=== PATIENT | female | born 1930 ===

== ENCOUNTER 2018-01-27 11:44 | Inpatient (IN) | payer MEDICARE, MEDICAID ==
--- NOTE | 2018-01-27 12:10 | ED PDOC ---
HPI: General Adult Time Seen by Provider: 01/27/18 11:58 Chief Complaint (Nursing): Weakness/Neurological Deficit Chief Complaint (Provider): Weakness and abnormal labs History Per: Patient History/Exam Limitations: no limitations Onset/Duration Of Symptoms: Days (today) Additional Complaint(s): PCP: Dr. Millard Pt. sent from shelter as her bun and cr were elevated. Pt. has known kidney dz. Limited H and P as pt. has dementia and not communicating. Does not follow commands. Also noted at the shelter that she has weakness but unclear how long. Past Medical History Reviewed: Historical Data, Nursing Documentation, Vital Signs Vital Signs: Last Vital Signs Temp 97.0 F L 01/27/18 11:46 Pulse 56 L 01/27/18 11:46 Resp 16 01/27/18 11:46 BP 131/71 01/27/18 11:46 Pulse Ox - Medical History PMH: Diabetes, HTN, Hypercholesterolemia, Chronic Kidney Disease - Family History Family History: States: Unknown Family Hx - Living Arrangements Living Arrangements: [facility] - Home Medications Home Medications: Ambulatory Orders Medication Instructions Recorded Acetaminophen [Tylenol 325mg tab] 650 mg PO Q4 PRN 01/27/18 Acetaminophen [Tylenol 325mg tab] 650 mg PO Q4 PRN 01/27/18 Allopurinol [Zyloprim] 100 mg PO DAILY 01/27/18 Atorvastatin [Lipitor] 40 mg PO HS 01/27/18 Bisacodyl [Dulcolax] 10 mg [place] DAILY PRN 01/27/18 Divalproex [Depakote Sprinkles] 125 mg PO QPM 01/27/18 Ibandronate Sodium [Boniva] 150 mg PO Q30D 01/27/18 Magnesium Hydroxide [Milk Of 30 ml PO HS PRN 01/27/18 Magnesia] Memantine [Namenda] 10 mg PO BID 01/27/18 SITagliptin [Januvia] 50 mg PO DAILY 01/27/18 Valsartan [Diovan] 320 mg PO DAILY 01/27/18 amLODIPine [Norvasc] 10 mg PO DAILY 01/27/18 - Allergies Allergies/Adverse Reactions: Allergies Allergy/AdvReac Type Severity Reaction Status Date / Time No Known Allergies Allergy Verified 01/27/18 11:46 Review of Systems Review Of Systems: ROS cannot be obtained secondary to pt's inabilty to answer questions. Physical Exam - Reviewed Nursing Documentation Reviewed: Yes Vital Signs Reviewed: Yes - Physical Exam Appears: Positive for: Non-toxic, No Acute Distress Head Exam: Positive for: ATRAUMATIC, NORMAL INSPECTION, NORMOCEPHALIC Skin: Positive for: Normal Color, Warm, DRY Eye Exam: Positive for: Normal appearance, PERRL ENT: Positive for: Normal ENT Inspection Neck: Positive for: Normal, Painless ROM, Supple Cardiovascular/Chest: Positive for: Regular Rate, Rhythm. Negative for: Edema Respiratory: Positive for: Normal Breath Sounds. Negative for: Decreased Breath Sounds, Accessory Muscle Use Gastrointestinal/Abdominal: Positive for: Normal Exam, Soft. Negative for: Tenderness Back: Positive for: Normal Inspection. Negative for: L CVA Tenderness, R CVA Tenderness Extremity: Negative for: Tenderness, Pedal Edema Neurologic/Psych: Positive for: Alert, Other (pt. not following commands; limited neuro exam; moving all extremities on her own will; speaks words, but not making sensible comments.). Negative for: Oriented - Laboratory Results Result Diagrams: 01/27/18 13:06 01/27/18 13:45 Interpretation Of Abn Labs: 108/3.3 bun/cr; 16.3 wbc Urine dip results: Negative for: Leukocyte Esterase - ECG ECG: Positive for: Interpreted By Me, Viewed By Me ECG Rhythm: Positive for: Normal QRS, Normal ST Segment, Sinus Rhythm - Progress ED Course And Treament: 1500: Pt. has antibiotics rx at shelter for "high wbc". Unclear level wbc at that time and source. 1 L of fluid given for dehydration and renal function abnormalities. Will need admit for eval. No source of infection at this time; will not give antibiotics; does not meet sepsis criteria. Spoke with Dr. Ponce. Will admit. Agrees with plan. Disposition - Clinical Impression Clinical Impression: Acute renal insufficiency, Dehydration, Leukocytosis - Patient ED Disposition Is Patient to be Admitted: No Counseled Patient/Family Regarding: Studies Performed, Diagnosis - Disposition Disposition Time: 14:29 Condition: FAIR - Pt Status Changed To: Hospital Disposition Of: Observation - POA Present On Arrival: None
[2018-01-27] MEDS: Sodium Chloride 0.9% 1,000 ML IV STA ×2 (13:16→18:21)
[2018-01-27 13:22] LABS: SQUAMOUS EPITHIAL < 1 /hpf (0-5); URINE AMORPHOUS SEDIMENT RARE /ul (<OCC); URINE BACTERIA RARE (<OCC); URINE BILIRUBIN NEGATIVE (NEGATIVE); URINE BLOOD NEGATIVE (NEGATIVE); URINE CLARITY CLOUDY (Clear); URINE COLOR YELLOW (YELLOW); URINE GLUCOSE (UA) NEG (Normal); URINE HYALINE CAST 0-2 /hpf (0-2); URINE LEUKOCYTE ESTERASE NEG Leu/uL (Negative); URINE PROTEIN 30 mg/dL (NEGATIVE); URINE UROBILINOGEN 0.2-1.0 mg/dL (0.2-1.0)
[2018-01-27 13:29] LABS: BASO % 0.1 % (0.0-2.0)
[2018-01-27 13:30] LABS: EOS % 0.2 % (0.0-4.0); HEMOGLOBIN 12.7 g/dL (12.0-16.0); LYMPH # 0.7 K/uL (1.0-4.3); LYMPH % 4.1 % (20.0-40.0); MEAN CELL VOLUME 80.2 fl (81.0-99.0); MEAN CORPUSCULAR HGB CONC 33.7 g/dL (33.0-37.0); MEAN PLATELET VOLUME 9.4 fl (7.2-11.7); MONO % 5.9 % (0.0-10.0); NEUT # 14.6 K/uL (1.8-7.0); NEUT % 89.7 % (50.0-75.0); PLATELET COUNT 398 K/uL (130-400); RBC 4.69 Mil/uL (3.80-5.20); RED CELL DISTRIBUTION WIDTH 18.9 % (11.5-14.5); WHITE BLOOD COUNT 16.3 K/uL (4.8-10.8)
--- NOTE | 2018-01-27 14:04 | CT ---
Date of service: 01/27/2018 PROCEDURE: CT HEAD WITHOUT CONTRAST. HISTORY: headache COMPARISON: None available. TECHNIQUE: Axial computed tomography images were obtained through the head/brain without intravenous contrast. Radiation dose: Total exam DLP = 814.59 mGy-cm. This CT exam was performed using one or more of the following dose reduction techniques: Automated exposure control, adjustment of the mA and/or kV according to patient size, and/or use of iterative reconstruction technique. FINDINGS: HEMORRHAGE: No intracranial hemorrhage. BRAIN: There a few lucencies in the right basal ganglia and external capsule suggestive of chronic lacunar infarcts. Otherwise, there is mild expansion of the ventriculosulcal and cisternal spaces pattern with mild diffuse cerebral atrophy. Ventricular and extra-axial expansion is proportional. Further, periventricular and centrum semiovale white matter lucency is appreciated in the cerebrum compatible with chronic microangiopathy. No mass-effect is identified and there is no definite cortical edema. Posterior fossa contents appear unremarkable including the brainstem. VENTRICLES: Unremarkable. No hydrocephalus. CALVARIUM: No fracture apparent. Mild atherosclerotic changes seen at the bilateral cavernous internal carotid artery segments. PARANASAL SINUSES: Unremarkable as visualized. No significant inflammatory changes. MASTOID AIR CELLS: Unremarkable as visualized. No inflammatory changes. OTHER FINDINGS: None. IMPRESSION: Age-appropriate age related neuro degenerative findings are appreciated as well as a few chronic lacunes at the right basal ganglia and external capsule. No definitive acute intracranial findings. CT or MRI are available for follow-up clinically warranted.
[2018-01-27 14:33] LABS: ALBUMIN 3.2 g/dL (3.5-5.0); CALCIUM 9.7 mg/dL (8.4-10.2)
[2018-01-27 14:34] LABS: ALB/GLOB RATIO 0.8 (1.0-2.1)
[2018-01-27 14:48] LABS: TROPONIN I 0.022 ng/mL (0.00-0.120)
[2018-01-27 14:54] LABS: BANDS 8 % (0-2); LYMPHOCYTE 9 % (20-50); MONOCYTE 4 % (0-10); NEUTROPHIL 79 % (42-75); TOTAL CELLS COUNTED 100
[2018-01-27 14:55] LABS: ANISOCYTOSIS SLIGHT; LARGE PLATELETS PRESENT; PLATELET ESTIMATE NORMAL (NORMAL); TEARDROP CELLS SLIGHT; TOXIC GRANULATION PRESENT
[2018-01-27 15:50] LABS: VENOUS BLOOD GAS BASE EXCESS -2.4 mmol/L (0.0-2.0); VENOUS BLOOD GAS PCO2 42 mmHg (40-60); VENOUS BLOOD GAS PO2 28 mm/Hg (30-55); VENOUS BLOOD PH 7.35 (7.32-7.43)
--- NOTE | 2018-01-27 15:54 | RAD ---
Date of service: 01/27/2018 HISTORY: dyspnea COMPARISON: No prior. FINDINGS: LUNGS: No active pulmonary disease. PLEURA: No significant pleural effusion identified, no pneumothorax apparent. CARDIOVASCULAR: No gross cardiac enlargement. Frontal technique limits evaluation the cardiac size nevertheless. No pulmonary vascular congestion evident. OSSEOUS STRUCTURES: No significant abnormalities. VISUALIZED UPPER ABDOMEN: Normal. OTHER FINDINGS: Prominent right paratracheal soft tissue may reflect substernal thyroid gland or great vessel ectasis. Trachea is not significantly deviated. IMPRESSION: No definite acute pulmonary disease. No gross cardiomegaly or pulmonary vascular congestion.
--- NOTE | 2018-01-27 16:32 | CP.PCM.HP ---
History of Present Illness - History of Present Illness History of Present Illness: 87 yo female with history of DM2, HTN, HLD, Dementia and CKD brought in from [facility]-way because of worsening renal function and generalized weakness. Patient was brought to [facility] in January 02 because she was not able to do her ADLs but was still able to ambulate with her cane. Family noted that she had deteriorated since then and was unable to ambulate even with a walker. She was given Cipro for a week the first few days but didn't say for what. Her feet and ankle was swollen a week ago but since then have subsided leaving blackish area on the right lateral malleolus. She also started having diarrhea a week ago. Patient denied any pain but seems to wince when right foot and ankle was held. Present on Admission - Present on Admission Any Indicators Present on Admission: No History of DVT/PE: No History of Uncontrolled Diabetes: No Urinary Catheter: No Decubitus Ulcer Present: No Review of Systems - Review of Systems Systems not reviewed;Unavailable: Dementia Past Patient History - Past Social History Smoking Status: Never Smoked - CARDIAC Hx Hypercholesterolemia: Yes Hx Hypertension: Yes - NEUROLOGICAL Hx Dementia: Yes - RENAL Hx Chronic Kidney Disease: Yes - MUSCULOSKELETAL/RHEUMATOLOGICAL Hx Osteoarthritis: Yes - PSYCHIATRIC Hx Substance Use: No - ANESTHESIA Hx Anesthesia: No Meds Allergies/Adverse Reactions: Allergies Allergy/AdvReac Type Severity Reaction Status Date / Time No Known Allergies Allergy Verified 01/27/18 11:46 Physical Exam - Constitutional Appears: No Acute Distress, Confused - Head Exam Head Exam: ATRAUMATIC - Eye Exam Eye Exam: absent: Scleral icterus - ENT Exam ENT Exam: Mucous Membranes Moist - Neck Exam Neck exam: Negative for: Meningismus - Respiratory Exam Respiratory Exam: absent: Rales, Rhonchi, Wheezes, Respiratory Distress - Cardiovascular Exam Cardiovascular Exam: REGULAR RHYTHM, +S1, +S2 - GI/Abdominal Exam GI & Abdominal Exam: Soft. absent: Tenderness - Rectal Exam Rectal Exam: Deferred - Extremities Exam Extremities exam: Positive for: pedal edema. Negative for: normal inspection ( multiple petechiae on both feet with black?? eschar on right lateral malleolus) - Back Exam Back exam: absent: tenderness - Neurological Exam Neurological exam: Alert, Oriented x3 - Psychiatric Exam Psychiatric exam: Flat Affect - Skin Skin Exam: Dry, Intact, Petechiae (on both feet ) Results - Vital Signs Recent Vital Signs: Last Vital Signs Temp 97.0 F L 01/27/18 11:46 Pulse 56 L 01/27/18 11:46 Resp 16 01/27/18 11:46 BP 131/71 01/27/18 11:46 Pulse Ox - Labs Result Diagrams: 01/27/18 13:06 01/27/18 13:45 Labs: Laboratory Results - last 24 hr 01/27/18 01/27/18 01/27/18 13:06 13:06 13:45 WBC 16.3 H RBC 4.69 Hgb 12.7 Hct 37.6 MCV 80.2 L MCH 27.0 MCHC 33.7 RDW 18.9 H Plt Count 398 MPV 9.4 Neut % (Auto) 89.7 H Lymph % (Auto) 4.1 L [place] % (Auto) 5.9 Eos % (Auto) 0.2 Baso % (Auto) 0.1 Neut # (Auto) 14.6 H Lymph # (Auto) 0.7 L [place] # (Auto) 1.0 H Eos # (Auto) 0.0 Baso # (Auto) 0.0 Neutrophils % (Manual) 79 H Band Neutrophils % 8 H Lymphocytes % (Manual) 9 L Monocytes % (Manual) 4 Toxic Granulation Present Platelet Estimate Normal Large Platelets Present Anisocytosis (manual) Slight Tear Drop Cells Slight pO2 ABG Carboxyhemoglobin POC ABG HHb (Measured) ABG Methemoglobin VBG pH VBG pCO2 VBG HCO3 VBG O2 Sat (Calc) VBG Base Excess VBG Hgb O2 Saturation Hemoglobin Sodium 143 Potassium 4.5 Chloride 108 H Carbon Dioxide 20 L Anion Gap 20 BUN 108 H* Creatinine 3.3 H Est GFR ( Amer) 16 Est GFR (Non-Af Amer) 13 Random Glucose 126 H Calcium 9.7 Phosphorus 5.8 H Magnesium 2.8 H Total Bilirubin 1.0 AST 28 ALT 25 Alkaline Phosphatase 96 Troponin I 0.0220 Total Protein 7.2 Albumin 3.2 L Globulin 4.0 H Albumin/Globulin Ratio 0.8 L Urine Color Yellow Urine Clarity Cloudy Urine pH 5.0 Ur Specific [place] 1.015 Urine Protein 30 Urine Glucose (UA) Neg Urine Ketones Negative Urine Blood Negative Urine Nitrate Negative Urine Bilirubin Negative Urine Urobilinogen 0.2-1.0 Ur Leukocyte Esterase Neg Urine RBC (Auto) < 1 Urine Microscopic WBC < 1 Ur Squamous Epith Cells < 1 Amorphous Sediment Rare H Urine Bacteria Rare Hyaline Casts 0-2 01/27/18 15:21 WBC RBC Hgb Hct MCV MCH MCHC RDW Plt Count MPV Neut % (Auto) Lymph % (Auto) [place] % (Auto) Eos % (Auto) Baso % (Auto) Neut # (Auto) Lymph # (Auto) [place] # (Auto) Eos # (Auto) Baso # (Auto) Neutrophils % (Manual) Band Neutrophils % Lymphocytes % (Manual) Monocytes % (Manual) Toxic Granulation Platelet Estimate Large Platelets Anisocytosis (manual) Tear Drop Cells pO2 28 L ABG Carboxyhemoglobin 1.8 H POC ABG HHb (Measured) 47.9 H ABG Methemoglobin 3.9 H VBG pH 7.35 VBG pCO2 42 VBG HCO3 21.8 VBG O2 Sat (Calc) 49.2 VBG Base Excess -2.4 L VBG Hgb O2 Saturation 46.4 L Hemoglobin 12.5 Sodium Potassium Chloride Carbon Dioxide Anion Gap BUN Creatinine Est GFR ( Amer) Est GFR (Non-Af Amer) Random Glucose Calcium Phosphorus Magnesium Total Bilirubin AST ALT Alkaline Phosphatase Troponin I Total Protein Albumin Globulin Albumin/Globulin Ratio Urine Color Urine Clarity Urine pH Ur Specific [place] Urine Protein Urine Glucose (UA) Urine Ketones Urine Blood Urine Nitrate Urine Bilirubin Urine Urobilinogen Ur Leukocyte Esterase Urine RBC (Auto) Urine Microscopic WBC Ur Squamous Epith Cells Amorphous Sediment Urine Bacteria Hyaline Casts Assessment & Plan - Assessment and Plan (Free Text) Assessment: 87 yo female with history of DM2, HTN, HLD, Dementia and CKD brought in from half-way because of worsening renal function and generalized weakness. Patient was brought to [facility] in January 02 because she was not able to do her ADLs but was still able to ambulate with her cane. Family noted that she had deteriorated since then and was unable to ambulate even with a walker. She was given Cipro for a week the first few days but didn't say for what. Her feet and ankle was swollen a week ago but since then have subsided leaving blackish area on the right lateral malleolus. She also started having diarrhea a week ago. Patient denied any pain but seems to wince when right foot and ankle was held. 1. Acute on CKD worsening renal function probably secondary to infection renal consult with Dr Herman IV hydration with NSS 100cc/hr repeat BMP in am 2. Dementia follow up CT scan of head unable to accomplish ADLs after admission to half-way maybe secondary to undiscovered CVA PT evaluation and management 3. DM2 accucheck ACHS with Lispro coverage Januvia 50mg PO daily HgA1C, BMP in am 4. HTN BP stable continue Amlodipine hold Diovan 5. Swelling of both Feet/Ankle podiatry consult venous doppler of both legs 6. Diarrhea R/O C dif colitis patient previously on Cipro a week ago? contact isolation 7. DVT prophylaxis Heparin 5000 units SC q 12hrs
[2018-01-27] MEDS ORDERED: Sodium Chloride 0.9% 1,000 ML IV SCH (17:00)
--- NOTE | 2018-01-27 18:19 | CP.PCM.CON ---
History of Present Illness - History of Present Illness History of Present Illness: Podiatry consult notes for attending Dr. Peralta 87 y/o F patient with PMH of DM2, HTN, HLD, Dementia and CKD seen and evaluated at the ED for B/L skin discoloration and ulcers in both feet. patient is not communicating and history was taken from her daughter. Daughter states that her mother went to a [facility] by January 04. She states that 1 week ago her mother started to develop b/l LE edema. She states that her mother also had multiple spots of red and black discoloration in both her feet and ankle. She states that they put her mother's feet in offloading boats. She states that yesterday her mother's edema got better but the discoloration got worse. Patient 's daughter denied that her mother got any recent F/N/V/C or SOB. She denies any other pedal complaint. PMH: DM2, HTN, HLD, Dementia and CKD PSH: Hysterectomy. Allergies: NKDA Review of Systems - Review of Systems Review of Systems: As per HPI Past Patient History - Past Social History Smoking Status: Never Smoked - CARDIAC Hx Hypercholesterolemia: Yes Hx Hypertension: Yes - NEUROLOGICAL Hx Dementia: Yes - RENAL Hx Chronic Kidney Disease: Yes - MUSCULOSKELETAL/RHEUMATOLOGICAL Hx Osteoarthritis: Yes - PSYCHIATRIC Hx Substance Use: No - ANESTHESIA Hx Anesthesia: No Meds Allergies/Adverse Reactions: Allergies Allergy/AdvReac Type Severity Reaction Status Date / Time No Known Allergies Allergy Verified 01/27/18 11:46 - Medications Medications: Current Medications Acetaminophen (Tylenol 325mg Tab) 650 mg PO Q4 PRN PRN Reason: TEMP OVER 101 Acetaminophen (Tylenol 325mg Tab) 650 mg PO Q4 PRN PRN Reason: Pain, Mild (1-3) Allopurinol (Zyloprim) 100 mg PO DAILY TARA Amlodipine Besylate (Norvasc) 10 mg PO DAILY TARA Atorvastatin Calcium (Lipitor) 40 mg PO HS TARA Bisacodyl (Dulcolax) 10 mg [place] DAILY PRN PRN Reason: NO BOWEL MOVEMENT X 3 DAYS Heparin Sodium (Porcine) (Heparin) 5,000 units SC Q12 TARA PRN Reason: Protocol Sodium Chloride (Sodium Chloride 0.9%) 1,000 mls @ 100 mls/hr IV .Q10H TARA Memantine (Namenda) 10 mg PO BID TARA Pantoprazole Sodium (Protonix Ec Tab) 40 mg PO DAILY TARA Sitagliptin Phosphate (Januvia) 50 mg PO DAILY TARA Physical Exam - Constitutional Appears: Non-toxic - Head Exam Head Exam: ATRAUMATIC, NORMOCEPHALIC - Extremities Exam Additional comments: LE focused exam: Vasc: DP/PT 2/4 b/l. Cap refill < 3 sec in all digits. temp gradient warm to cool. No edema b/l. Neuro: Couldn't be assessed as the patient is not comparable Derm: Scattered patches of dark discolored skin at the ankle b/l the smallest measures 3 X 2 cm and the largest one measures 7 X 5 cm. surrounded by an area of erythema but no open lesions, No malodor or drainage. Ortho: Pain on palpating the discolored areas. Muscle power couldn't be assessed as the patient is not cooperating. Results - Vital Signs Recent Vital Signs: Last Vital Signs Temp 98.8 F 01/27/18 16:26 Pulse 85 01/27/18 16:26 Resp 19 01/27/18 16:26 BP 128/94 H 01/27/18 16:26 Pulse Ox 98 01/27/18 16:26 - Labs Result Diagrams: 01/27/18 13:06 01/27/18 13:45 Labs: Laboratory Results - last 24 hr 01/27/18 01/27/18 01/27/18 13:06 13:06 13:45 WBC 16.3 H RBC 4.69 Hgb 12.7 Hct 37.6 MCV 80.2 L MCH 27.0 MCHC 33.7 RDW 18.9 H Plt Count 398 MPV 9.4 Neut % (Auto) 89.7 H Lymph % (Auto) 4.1 L [place] % (Auto) 5.9 Eos % (Auto) 0.2 Baso % (Auto) 0.1 Neut # (Auto) 14.6 H Lymph # (Auto) 0.7 L [place] # (Auto) 1.0 H Eos # (Auto) 0.0 Baso # (Auto) 0.0 Neutrophils % (Manual) 79 H Band Neutrophils % 8 H Lymphocytes % (Manual) 9 L Monocytes % (Manual) 4 Toxic Granulation Present Platelet Estimate Normal Large Platelets Present Anisocytosis (manual) Slight Tear Drop Cells Slight pO2 ABG Carboxyhemoglobin POC ABG HHb (Measured) ABG Methemoglobin VBG pH VBG pCO2 VBG HCO3 VBG O2 Sat (Calc) VBG Base Excess VBG Hgb O2 Saturation Hemoglobin Sodium 143 Potassium 4.5 Chloride 108 H Carbon Dioxide 20 L Anion Gap 20 BUN 108 H* Creatinine 3.3 H Est GFR ( Amer) 16 Est GFR (Non-Af Amer) 13 Random Glucose 126 H Calcium 9.7 Phosphorus 5.8 H Magnesium 2.8 H Total Bilirubin 1.0 AST 28 ALT 25 Alkaline Phosphatase 96 Troponin I 0.0220 Total Protein 7.2 Albumin 3.2 L Globulin 4.0 H Albumin/Globulin Ratio 0.8 L Urine Color Yellow Urine Clarity Cloudy Urine pH 5.[address] [place] 1.015 Urine Protein 30 Urine Glucose (UA) Neg Urine Ketones Negative Urine Blood Negative Urine Nitrate Negative Urine Bilirubin Negative Urine Urobilinogen 0.2-1.0 Ur Leukocyte Esterase Neg Urine RBC (Auto) < 1 Urine Microscopic WBC < 1 Ur Squamous Epith Cells < 1 Amorphous Sediment Rare H Urine Bacteria Rare Hyaline Casts 0-2 01/27/18 15:21 WBC RBC Hgb Hct MCV MCH MCHC RDW Plt Count MPV Neut % (Auto) Lymph % (Auto) [place] % (Auto) Eos % (Auto) Baso % (Auto) Neut # (Auto) Lymph # (Auto) [place] # (Auto) Eos # (Auto) Baso # (Auto) Neutrophils % (Manual) Band Neutrophils % Lymphocytes % (Manual) Monocytes % (Manual) Toxic Granulation Platelet Estimate Large Platelets Anisocytosis (manual) Tear Drop Cells pO2 28 L ABG Carboxyhemoglobin 1.8 H POC ABG HHb (Measured) 47.9 H ABG Methemoglobin 3.9 H VBG pH 7.35 VBG pCO2 42 VBG HCO3 21.8 VBG O2 Sat (Calc) 49.2 VBG Base Excess -2.4 L VBG Hgb O2 Saturation 46.4 L Hemoglobin 12.5 Sodium Potassium Chloride Carbon Dioxide Anion Gap BUN Creatinine Est GFR ( Amer) Est GFR (Non-Af Amer) Random Glucose Calcium Phosphorus Magnesium Total Bilirubin AST ALT Alkaline Phosphatase Troponin I Total Protein Albumin Globulin Albumin/Globulin Ratio Urine Color Urine Clarity Urine pH Ur Specific [place] Urine Protein Urine Glucose (UA) Urine Ketones Urine Blood Urine Nitrate Urine Bilirubin Urine Urobilinogen Ur Leukocyte Esterase Urine RBC (Auto) Urine Microscopic WBC Ur Squamous Epith Cells Amorphous Sediment Urine Bacteria Hyaline Casts Assessment & Plan - Assessment and Plan (Free Text) Assessment: 87 y/o F patient seen and evaluated in the ED for pain and discoloration of her feet and ankle b/l Plan: Patient seen and evaluated in the ED. Plan discussed in details with attending Dr. Peralta. Chart, labs and vitals reviewed; afeebrile, WBCs 16.3 Venous duplex done and reviewed; No evidence of DVT Discussed with the patient's daughter the duplex result. Patient will got admitted for her ESRD. Patient daughter expressed verbal understanding Podiatry will follow up the patient in house. - Date & Time Date: 01/27/18 Time: 19:02
--- NOTE | 2018-01-27 19:03 | US ---
Date of service: 01/27/2018 PROCEDURE: Bilateral lower extremity venous duplex Doppler. HISTORY: r/o DVT COMPARISON: None available. TECHNIQUE: Bilateral common femoral, superficial femoral, popliteal and posterior tibial veins were evaluated. Flow was assessed with color Doppler, compressibility, assessment of phasic flow and augmentation response. FINDINGS: COMMON FEMORAL VEIN: Right CFV: Unremarkable. Left CFV: Unremarkable. SUPERFICIAL FEMORAL VEIN: Right SFV: Unremarkable. Left SFV: Unremarkable. POPLITEAL VEIN: Right Popliteal: Unremarkable. Left Popliteal: Unremarkable. POSTERIOR TIBIAL VEIN: Right PTV: Unremarkable. Left PTV: Unremarkable. OTHER FINDINGS: None. IMPRESSION: No evidence of deep venous thrombosis.
--- NOTE | 2018-01-27 21:03 | CARD ---
APPROVED REPORT Date of service: 01/27/2018 EKG Measurement Heart [id number] <Conclusion> Normal sinus rhythm Normal ECG
[2018-01-28 07:28] LABS: BASO # 0.3 K/uL (0.0-0.2); BASO % 1.7 % (0.0-2.0); EOS % 0.2 % (0.0-4.0); HEMOGLOBIN 10.9 g/dL (12.0-16.0); LYMPH # 0.4 K/uL (1.0-4.3); LYMPH % 2.2 % (20.0-40.0); MEAN CELL VOLUME 80.2 fl (81.0-99.0); MEAN CORPUSCULAR HGB CONC 32.4 g/dL (33.0-37.0); MONO % 5.1 % (0.0-10.0); NEUT # 17.6 K/uL (1.8-7.0); NEUT % 90.8 % (50.0-75.0); PLATELET COUNT 311 K/uL (130-400); RBC 4.19 Mil/uL (3.80-5.20); WHITE BLOOD COUNT 19.3 K/uL (4.8-10.8)
[2018-01-28 07:59] LABS: CALCIUM 9.4 mg/dL (8.4-10.2)
--- NOTE | 2018-01-28 08:38 | CP.PCM.PN ---
Subjective - Date & Time of Evaluation Date of Evaluation: 01/28/18 Time of Evaluation: 08:36 - Subjective Subjective: Podiatry progress note for attending Dr. De León, 87 y/o female seen and evaluated at bedside. Patient family not present at bedside for B/L skin discoloration and ecchymosis. Patient unable to communicate due to altered mental status. Patient awake, and in no acute distress. As per nursing, no overnight events noted and patient afebrile. Objective - Vital Signs/Intake and Output Vital Signs (last 24 hours): Temp Pulse Resp BP Pulse Ox 97.9 F 84 18 114/59 L 95 01/28/18 08:09 01/28/18 08:09 01/28/18 08:09 01/28/18 08:09 01/28/18 08:09 - Medications Medications: Current Medications Acetaminophen (Tylenol 325mg Tab) 650 mg PO Q4 PRN PRN Reason: TEMP OVER 101 Acetaminophen (Tylenol 325mg Tab) 650 mg PO Q4 PRN PRN Reason: Pain, Mild (1-3) Allopurinol (Zyloprim) 100 mg PO DAILY [facility] Amlodipine Besylate (Norvasc) 10 mg PO DAILY [facility] Atorvastatin Calcium (Lipitor) 40 mg PO HS [facility] Last Admin: 01/27/18 21:48 Dose: 40 mg Bisacodyl (Dulcolax) 10 mg [place] DAILY PRN PRN Reason: NO BOWEL MOVEMENT X 3 DAYS Heparin Sodium (Porcine) (Heparin) 5,000 units SC Q12 TARA PRN Reason: Protocol Last Admin: 01/27/18 21:48 Dose: 5,000 units Sodium Chloride (Sodium Chloride 0.9%) 1,000 mls @ 100 mls/hr IV .Q10H [facility] Last Admin: 01/27/18 18:21 Dose: 100 mls/hr Memantine (Namenda) 10 mg PO BID TARA Pantoprazole Sodium (Protonix Ec Tab) 40 mg PO DAILY TARA Sitagliptin Phosphate (Januvia) 50 mg PO DAILY [facility] - Labs Labs: 01/28/18 06:00 01/28/18 06:00 - Constitutional Appears: Well, Non-toxic, No Acute Distress - Head Exam Head Exam: ATRAUMATIC, NORMOCEPHALIC - Extremities Exam Additional comments: Bilateral Lower Extremity Exam- Vasc: DP and PT 2/4 bilaterally, Cap refill < 3 sec in all digits, temp gradient warm to cool, No edema bilaterally Neuro: count not assess due to patient altered mental status Derm: Scattered patches of dark discolored skin at the ankle bilaterally, surrounded by an areas of erythema, no open lesions, no malodor or drainage Ortho: Pain on palpation to the discolored areas, could not assess patient MSK due to altered mental status - Neurological Exam Neurological Exam: Awake - Psychiatric Exam Psychiatric exam: Normal Affect, Normal Mood Assessment and Plan - Assessment and Plan (Free Text) Assessment: 87 y/o female patient seen and evaluated at bedside for pain and discoloration to feet and ankle bilaterally Plan: Patient seen and evaluated at bedside for attending Dr. De León Plan discusssed with attending Dr. De León Chart, labs and vitals reviewed- Afebrile, WBC (01/28) 19.3 , BUN (01/28) 98, Cr ( 01/28) 2.7 Lower Extremity US B/L (01/27): no evidence of DVT No dressing applied to feet at this time No podiatric intervention at this time Podiatry will continue to follow patient while in-house
--- NOTE | 2018-01-28 08:58 | US ---
Date of service: 01/27/2018 PROCEDURE: Duplex ultrasound of the bilateral lower extremity arteries. HISTORY: petechiae COMPARISON: None available. TECHNIQUE: Grayscale and duplex Doppler evaluation of the bilateral common femoral, superficial femoral, popliteal, posterior tibial and dorsalis pedis arteries was performed. FINDINGS: RIGHT LOWER EXTREMITY: RIGHT COMMON FEMORAL ARTERY: Widely patent. Maximal flow velocity of 58.0 cm/s. RIGHT SUPERFICIAL FEMORAL ARTERY: * Proximal: Widely patent. Maximal flow velocity of 74.3 cm/s. * Mid: Widely patent. Maximal flow velocity of 42.6 cm/s. * Distal: Widely patent. Maximal flow velocity of 54.2 cm/s. RIGHT POPLITEAL ARTERY: Widely patent. Maximal flow velocity of 67.0 cm/s. RIGHT ANTERIOR TIBIAL ARTERY: Widely patent. Maximal flow velocity of 47.7 cm/s. RIGHT POSTERIOR TIBIAL ARTERY: Widely patent. Maximal flow velocity of 59.3 cm/s. RIGHT DORSALIS PEDIS ARTERY: Widely patent. Maximal flow velocity of 36.0 cm/s. LEFT LOWER EXTREMITY: LEFT COMMON FEMORAL ARTERY: Widely patent. Maximal flow velocity of 118.9 cm/s. LEFT SUPERFICIAL FEMORAL ARTERY: * Proximal: Widely patent. Maximal flow velocity of 64.5 cm/s. * Mid: Widely patent. Maximal flow velocity of 52.0 cm/s. * Distal: Widely patent. Maximal flow velocity of 52.0 cm/s. LEFT POPLITEAL ARTERY: Widely patent. Maximal flow velocity of 61.4 cm/s. LEFT ANTERIOR TIBIAL ARTERY: Widely patent. Maximal flow velocity of 37.2 cm/s. LEFT POSTERIOR TIBIAL ARTERY: Widely patent. Maximal flow velocity of 49.5 cm/s. LEFT DORSALIS PEDIS ARTERY: Widely patent. Maximal flow velocity of 36.2 cm/s. OTHER FINDINGS: None. IMPRESSION: Normal Duplex Doppler of the bilateral lower extremity arteries.
[2018-01-28 09:50] LABS: BANDS 13 % (0-2); LYMPHOCYTE 3 % (20-50); MONOCYTE 4 % (0-10); NEUTROPHIL 80 % (42-75); PLATELET ESTIMATE NORMAL (NORMAL); TOTAL CELLS COUNTED 100
[2018-01-28 09:51] LABS: ANISOCYTOSIS SLIGHT; POIKILOCYTOSIS SLIGHT; TEARDROP CELLS SLIGHT
[2018-01-28 09:52] LABS: BURR CELLS SLIGHT; LARGE PLATELETS PRESENT
[2018-01-28] MEDS: Pantoprazole 40 mg EC Tab PO SCH (11:01)
[2018-01-28] MEDS: Sodium Chloride 0.45% 1,000 ML IV SCH ×2 (11:04→21:38)
[2018-01-28] MEDS ORDERED: Sodium Chloride 0.9% 1,000 ML IV SCH (12:15)
--- NOTE | 2018-01-28 15:36 | CP.PCM.PN ---
Subjective - Date & Time of Evaluation Date of Evaluation: 01/28/18 Time of Evaluation: 11:30 - Subjective Subjective: Patient seen and examined. Patient remained confused, not in any form of distress. Objective - Vital Signs/Intake and Output Vital Signs (last 24 hours): Temp Pulse Resp BP Pulse Ox 98.4 F 81 18 120/61 97 01/28/18 12:17 01/28/18 12:17 01/28/18 12:17 01/28/18 12:17 01/28/18 12:17 - Medications Medications: Current Medications Acetaminophen (Tylenol 325mg Tab) 650 mg PO Q4 PRN PRN Reason: TEMP OVER 101 Acetaminophen (Tylenol 325mg Tab) 650 mg PO Q4 PRN PRN Reason: Pain, Mild (1-3) Allopurinol (Zyloprim) 100 mg PO DAILY [facility] Last Admin: 01/28/18 11:01 Dose: 100 mg Atorvastatin Calcium (Lipitor) 40 mg PO HS [facility] Last Admin: 01/27/18 21:48 Dose: 40 mg Bisacodyl (Dulcolax) 10 mg [place] DAILY PRN PRN Reason: NO BOWEL MOVEMENT X 3 DAYS Heparin Sodium (Porcine) (Heparin) 5,000 units SC Q12 [facility] PRN Reason: Protocol Last Admin: 01/28/18 11:00 Dose: 5,000 units Sodium Chloride (Sodium Chloride 0.45%) 1,000 mls @ 100 mls/hr IV .Q10H [facility] Stop: 01/29/18 10:02 Last Admin: 01/28/18 11:04 Dose: 100 mls/hr Piperacillin Sod/Tazobactam (Sod 2.25 gm/ Sodium Chloride) 100 mls @ 100 mls/ hr IVPB Q6 [facility] PRN Reason: Protocol Sodium Chloride (Sodium Chloride 0.9%) 1,000 mls @ 200 mls/hr IV .Q5H [facility] Stop: 01/29/18 12:08 Last Admin: 01/28/18 12:54 Dose: 200 mls/hr Memantine (Namenda) 10 mg PO BID [facility] Last Admin: 01/28/18 11:01 Dose: 10 mg Metronidazole (Flagyl) 500 mg PO Q8 [facility] PRN Reason: Protocol Pantoprazole Sodium (Protonix Ec Tab) 40 mg PO DAILY [facility] Last Admin: 01/28/18 11:01 Dose: 40 mg Sitagliptin Phosphate (Januvia) 50 mg PO DAILY [facility] Last Admin: 01/28/18 11:00 Dose: 50 mg - Labs Labs: 01/28/18 06:00 01/28/18 06:00 - Constitutional Appears: No Acute Distress - Head Exam Head Exam: ATRAUMATIC - Eye Exam Eye Exam: absent: Scleral icterus - ENT Exam ENT Exam: Mucous Membranes Moist - Neck Exam Neck Exam: absent: Meningismus - Respiratory Exam Respiratory Exam: absent: Rales, Rhonchi, Wheezes, Respiratory Distress - Cardiovascular Exam Cardiovascular Exam: REGULAR RHYTHM, +S1, +S2 - GI/Abdominal Exam GI & Abdominal Exam: Soft. absent: Tenderness - Rectal Exam Rectal Exam: Deferred - Extremities Exam Extremities Exam: absent: Normal Inspection (foot and ankle with mini red dark spots like petechiae) - Neurological Exam Neurological Exam: Awake. absent: Oriented x3 - Psychiatric Exam Psychiatric exam: Flat Affect - Skin Skin Exam: Dry, Intact, Petechiae Assessment and Plan - Assessment and Plan (Free Text) Assessment: 87 yo female with history of DM2, HTN, HLD, Dementia and CKD [facility] because of worsening renal function and generalized weakness. Patient was brought to [facility] in January 02 because she was not able to do her ADLs but was still able to ambulate with her cane. Family noted that she had deteriorated since then and was unable to ambulate even with a walker. She was given Cipro for a week the first few days but didn't say for what. Her feet and ankle was swollen a week ago but since then have subsided leaving blackish necrotic areas on both feet sorrounded with mini dark red spots. She also started having diarrhea a week ago. 1. Acute on CKD worsening renal function probably secondary to infection r/o drug reaction specially with skin lesions on both legs and feet patient was put on Divalproex in [facility] for behaviour control renal consult with Dr Herman continue IV hydration with NSS 100cc/hr 2. Dementia CT scan of head: chronic degenerative changes unable to accomplish ADLs after admission to [facility] maybe secondary to undiscovered CVA PT evaluation and management 3. DM2 BS controlled accucheck ACHS with Lispro coverage Januvia 50mg PO daily HgA1C pending 4. HTN BP stable continue Amlodipine 5. Swelling of both Feet/Ankle petechiae like lesions sorrounding black necrotic lesions on both feet r/o drug eruptions (patient was put on Depakote for behavioural control in [facility]) podiatry on board venous and arterial doppler of both legs: negative for DVT and arterial occlusion 6. Diarrhea R/O C dif colitis patient previously on Cipro a week ago? contact isolation Flagyl 500mg PO q 8hrs 7. Elevated Bands WBC elevated to 19.3 afebrile blood and urine culture: pending Vanco 1gm IV Zosyn 2.25gm IV q 6hrs ID consult with Dr Akhtar 8. DVT prophylaxis Heparin 5000 units SC q 12hrs
[2018-01-28] MEDS ORDERED: Chlorhexidine Gluconate 1 APPL/PKT TP ONE (16:44)
--- NOTE | 2018-01-28 17:20 | CP.PCM.CON ---
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 with ? mg proteinuria (R80.9) likely due to DM/HTN/age related decline Anemia (D64.9), Bandemia acute gastroenteritis ? C diff Plan No acute need for renal replacement therapy at this time. BP low side, hold BP meds, avoid hypotension Patient not on ACEI/ARB due to AILEEN Monitor Input/Output, daily weights and renal function with basic metabolic panel IVF as 0.45% @ 100 ml/hr Check urine Na/cr, spot protein/creatinine and albumin/creatinine ratio, renal sonogram. Urine for eosinophils, CPK, uric acid. Check for 25-OH vitamin D, iPTH, phosphorus level, iron studies Dose meds/antibiotics for reduced GFR. Avoid fleets enema/magnesium based laxatives. Avoid nephrotoxins/NSAIDs/ iodinated contrast (unless needed emergently) Glycemic control Further work up/management as per primary team Thanks for allowing me to participate in care of your patient. Will follow patient with you. Please call if any Qs Dr Steve Putnam Office: [phone] Chief Complaint; unable reason for consult: AILEEN HPI: Pt is a 87 F with hx of diabetes Mellitus ( years), hypertension (years) dementia, CKD presented with complaints of AMS and found to have AILEEN. also with loose stool. recently treated with cipro. Denies OTC/herbal meds or NSAIDs No recent iodinated contrast exposure. Noted obvious episodes of low BP (82/30). ROS: pt unable to provide any hx due to AMS and dementia Physical Examination: General Appearance: Comfortable, in no acute respiratory distress, co-operative . elderly female, ill appearing Vitals reviewed and noted as below Head; Atraumatic, normocephalic ENT: no ulcers no thrush. Tongue is midline/dry. Oropharynx: no rash or ulcers. EYES: Pupils are equal, round and reactive to light accommodation. Eye muscles and extraocular movement intact. Sclera is anicteric. Neck; supple no lymphadenopathy, no thyromegaly or bruit Lungs: Normal respiratory rate/effort. Breath sounds bilateral equal and clear Heart: Normal rate. s1s2 normal. No rub or gallop. Extremities: no edema. No varicose veins Neurological: Patient is demented with AMS Skin: Warm and dry. Normal turgor. No rash. Palpitation: Normal elasticity for age Abdomen: Abdomen is soft. Bowel sounds +. There is abdominal tenderness, no guarding/rigidity no organomegaly Psych: lack insight MSK: no joint tenderness or swelling. Digits and nails normal, no deformity : kidney or bladder not palpable Labs/imaging reviewed. Past medical history, past surgical history, family history, social history, allergy reviewed and noted as below Family hx: no hx of CKD. Rest non-contributory UA 30 protein no blood Past Patient History - Past Social History Smoking Status: Never Smoked - CARDIAC Hx Cardiac Disorders: Yes - PULMONARY Hx Respiratory Disorders: Yes - NEUROLOGICAL Hx Neurological Disorder: Yes - RENAL Hx Chronic Kidney Disease: Yes - MUSCULOSKELETAL/RHEUMATOLOGICAL Hx Falls: No Hx Osteoarthritis: Yes - PSYCHIATRIC Hx Substance Use: No - ANESTHESIA Hx Anesthesia: No Meds Allergies/Adverse Reactions: Allergies Allergy/AdvReac Type Severity Reaction Status Date / Time No Known Allergies Allergy Verified 01/27/18 11:46 - Medications Medications: Current Medications Acetaminophen (Tylenol 325mg Tab) 650 mg PO Q4 PRN PRN Reason: TEMP OVER 101 Acetaminophen (Tylenol 325mg Tab) 650 mg PO Q4 PRN PRN Reason: Pain, Mild (1-3) Allopurinol (Zyloprim) 100 mg PO DAILY [facility] Last Admin: 01/28/18 11:01 Dose: 100 mg Atorvastatin Calcium (Lipitor) 40 mg PO HS [facility] Last Admin: 01/27/18 21:48 Dose: 40 mg Bisacodyl (Dulcolax) 10 mg [place] DAILY PRN PRN Reason: NO BOWEL MOVEMENT X 3 DAYS Heparin Sodium (Porcine) (Heparin) 5,000 units SC Q12 [facility] PRN Reason: Protocol Last Admin: 01/28/18 11:00 Dose: 5,000 units Sodium Chloride (Sodium Chloride 0.45%) 1,000 mls @ 100 mls/hr IV .Q10H [facility] Stop: 01/29/18 10:02 Last Admin: 01/28/18 11:04 Dose: 100 mls/hr Piperacillin Sod/Tazobactam (Sod 2.25 gm/ Sodium Chloride) 100 mls @ 100 mls/ hr IVPB Q6 [facility] PRN Reason: Protocol Last Admin: 01/28/18 16:49 Dose: 100 mls/hr Sodium Chloride (Sodium Chloride 0.9%) 1,000 mls @ 200 mls/hr IV .Q5H [facility] Stop: 01/29/18 12:08 Last Admin: 01/28/18 12:54 Dose: 200 mls/hr Memantine (Namenda) 10 mg PO BID [facility] Last Admin: 01/28/18 16:49 Dose: 10 mg Metronidazole (Flagyl) 500 mg PO Q8 [facility] PRN Reason: Protocol Last Admin: 01/28/18 16:48 Dose: 500 mg Pantoprazole Sodium (Protonix Ec Tab) 40 mg PO DAILY [facility] Last Admin: 01/28/18 11:01 Dose: 40 mg Sitagliptin Phosphate (Januvia) 50 mg PO DAILY [facility] Last Admin: 01/28/18 11:00 Dose: 50 mg Results - Vital Signs Recent Vital Signs: Last Vital Signs Temp 98.6 F 01/28/18 16:00 Pulse 71 01/28/18 16:00 Resp 20 01/28/18 16:00 BP 94/56 L 01/28/18 16:00 Pulse Ox 95 01/28/18 16:00 - Labs Result Diagrams: 01/28/18 06:00 01/28/18 06:00 Labs: Laboratory Results - last 24 hr 01/28/18 01/28/18 01/28/18 02:09 05:31 06:00 WBC 19.3 H RBC 4.19 Hgb 10.9 L Hct 33.6 L MCV 80.2 L MCH 26.0 L MCHC 32.4 L RDW 18.0 H Plt Count 311 MPV 9.0 Neut % (Auto) 90.8 H Lymph % (Auto) 2.2 L [place] % (Auto) 5.1 Eos % (Auto) 0.2 Baso % (Auto) 1.7 Neut # (Auto) 17.6 H Lymph # (Auto) 0.4 L [place] # (Auto) 1.0 H Eos # (Auto) 0.0 Baso # (Auto) 0.3 H Neutrophils % (Manual) 80 H Band Neutrophils % 13 H* Lymphocytes % (Manual) 3 L Monocytes % (Manual) 4 Platelet Estimate Normal Large Platelets Present Poikilocytosis (manual Slight Anisocytosis (manual) Slight Tear Drop Cells Slight Melchor Cells Slight Schistocytes TEST NOT PERFORMED Sodium Potassium Chloride Carbon Dioxide Anion Gap BUN Creatinine Est GFR ( Amer) Est GFR (Non-Af Amer) POC Glucose (mg/dL) 120 H 129 H Random Glucose Lactic Acid Calcium TSH 3rd Generation 01/28/18 01/28/18 01/28/18 06:00 11:37 12:20 WBC RBC Hgb Hct MCV MCH MCHC RDW Plt Count MPV Neut % (Auto) Lymph % (Auto) [place] % (Auto) Eos % (Auto) Baso % (Auto) Neut # (Auto) Lymph # (Auto) [place] # (Auto) Eos # (Auto) Baso # (Auto) Neutrophils % (Manual) Band Neutrophils % Lymphocytes % (Manual) Monocytes % (Manual) Platelet Estimate Large Platelets Poikilocytosis (manual Anisocytosis (manual) Tear Drop Cells [place] Cells Schistocytes Sodium 149 H Potassium 3.9 Chloride 116 H Carbon Dioxide 19 L Anion Gap 18 BUN 98 H Creatinine 2.7 H Est GFR ( Amer) 20 Est GFR (Non-Af Amer) 17 POC Glucose (mg/dL) 141 H Random Glucose 128 H Lactic Acid 1.0 Calcium 9.4 TSH 3rd Generation 1.11
--- NOTE | 2018-01-29 01:53 | CON ---
DATE: 01/28/2018 INFECTIOUS DISEASE CONSULT HISTORY OF PRESENT ILLNESS: The patient is an 87-year-old female who has dementia who cannot give any history and was sent from a longterm with an elevated BUN and creatinine. The patient with known kidney disease. The patient was noted at the longterm to have developed increased peripheral edema and lesions on both lower extremities and feet. Daughters did note that the edema was better on the day prior to admission, but that the discoloration got worse. The history taken, there is no awareness of any fever or chills or history of fever or chills. Duplex scan of lower extremities is within normal limits. The patient also has a history of diarrhea starting about a week ago. I had discussed this case with the hospitalist. PHYSICAL EXAMINATION: HEENT: Essentially within normal limits. NECK: Supple. LUNGS: Decreased breath sounds. HEART: Regular sinus rhythm. ABDOMEN: Soft. Positive bowel sounds. EXTREMITIES: Lower extremities show both with edema. There are scattered patches of dark, discolored skin at the ankles that was surrounded with erythema. There were no ulcers noted, and there is no drainage. She does appear to have pain on these discolored areas. LABORATORY DATA: The patient's labs are quite significant in that the creatinine is 3.3 yesterday and today it is 2.7, GFR is 17 today and it was 13 yesterday, sodium was within normal limits as was the potassium. LFTs are also within normal limits. Lactic acid is 1. Of significance is that she has a white blood cell count of 19.3, platelet count is 311, but she also has 13% bands and 90 % neutrophils. ASSESSMENT AND PLAN: At present time, due to the white count and differential, I agree with starting her on vancomycin and Zosyn. At the present time, she is given a dose of vancomycin and I have ordered a random vancomycin level before starting her on a daily dose and Zosyn started on a renally adjusted dose. Kian Akhtar MD
[2018-01-29 07:25] LABS: BASO % 0.1 % (0.0-2.0); EOS # 0.1 K/uL (0.0-0.7); EOS % 0.5 % (0.0-4.0); LYMPH # 0.6 K/uL (1.0-4.3); LYMPH % 2.7 % (20.0-40.0); MEAN CELL VOLUME 80.2 fl (81.0-99.0); MEAN CORPUSCULAR HEMOGLOBIN 26.8 pg (27.0-31.0); MEAN CORPUSCULAR HGB CONC 33.4 g/dL (33.0-37.0); MEAN PLATELET VOLUME 9.6 fl (7.2-11.7); MONO # 0.6 K/uL (0.0-0.8); MONO % 3.1 % (0.0-10.0); NEUT # 19.6 K/uL (1.8-7.0); NEUT % 93.6 % (50.0-75.0); PLATELET COUNT 309 K/uL (130-400); RED CELL DISTRIBUTION WIDTH 18.5 % (11.5-14.5); WHITE BLOOD COUNT 20.9 K/uL (4.8-10.8)
[2018-01-29 07:30] LABS: CALCIUM 8.9 mg/dL (8.4-10.2); URIC ACID 7.4 mg/Dl (2.2-7.5)
--- NOTE | 2018-01-29 08:49 | CP.PCM.PN ---
Subjective - Date & Time of Evaluation Date of Evaluation: 01/29/18 Time of Evaluation: 08:47 - Subjective Subjective: Podiatry progress note for attending Dr. De León, 87 y/o female seen and evaluated at bedside for B/L lower extremity skin discoloration and ecchymosis. Patient unable to communicate due to altered mental status. Patient resting comfortably in bed, and in no acute distress. As per nursing, no overnight events noted and patient afebrile. Objective - Vital Signs/Intake and Output Vital Signs (last 24 hours): Temp Pulse Resp BP Pulse Ox 98.4 F 89 18 128/62 95 01/29/18 08:02 01/29/18 08:02 01/29/18 08:02 01/29/18 08:02 01/29/18 08:02 - Medications Medications: Current Medications Acetaminophen (Tylenol 325mg Tab) 650 mg PO Q4 PRN PRN Reason: TEMP OVER 101 Acetaminophen (Tylenol 325mg Tab) 650 mg PO Q4 PRN PRN Reason: Pain, Mild (1-3) Allopurinol (Zyloprim) 100 mg PO DAILY [facility] Last Admin: 01/28/18 11:01 Dose: 100 mg Atorvastatin Calcium (Lipitor) 40 mg PO HS [facility] Last Admin: 01/28/18 22:00 Dose: 40 mg Bisacodyl (Dulcolax) 10 mg [place] DAILY [facility]N PRN Reason: NO BOWEL MOVEMENT X 3 DAYS Heparin Sodium (Porcine) (Heparin) 5,000 units SC Q12 [facility] PRN Reason: Protocol Last Admin: 01/28/18 21:35 Dose: 5,000 units Sodium Chloride (Sodium Chloride 0.45%) 1,000 mls @ 100 mls/hr IV .Q10H [facility] Stop: 01/29/18 10:02 Last Admin: 01/28/18 21:38 Dose: 100 mls/hr Piperacillin Sod/Tazobactam (Sod 2.25 gm/ Sodium Chloride) 100 mls @ 100 mls/ hr IVPB Q6 [facility] PRN Reason: Protocol Last Admin: 01/29/18 06:47 Dose: 100 mls/hr Sodium Chloride (Sodium Chloride 0.9%) 1,000 mls @ 200 mls/hr IV .Q5H [facility] Stop: 01/29/18 12:08 Last Admin: 01/28/18 12:54 Dose: 200 mls/hr Memantine (Namenda) 10 mg PO BID [facility] Last Admin: 01/28/18 16:49 Dose: 10 mg Metronidazole (Flagyl) 500 mg PO Q8 [facility] PRN Reason: Protocol Last Admin: 01/29/18 02:37 Dose: 500 mg Pantoprazole Sodium (Protonix Ec Tab) 40 mg PO DAILY [facility] Last Admin: 01/28/18 11:01 Dose: 40 mg Sitagliptin Phosphate (Januvia) 50 mg PO DAILY [facility] Last Admin: 01/28/18 11:00 Dose: 50 mg - Labs Labs: 01/29/18 05:30 01/29/18 05:30 - Constitutional Appears: Well, Non-toxic, No Acute Distress - Head Exam Head Exam: ATRAUMATIC, NORMOCEPHALIC - Extremities Exam Additional comments: Bilateral Lower Extremity Exam- Vasc: DP and PT 2/4 bilaterally, Cap refill < 3 sec in all digits, temp gradient warm to cool, No edema bilaterally Neuro: count not assess due to patient altered mental status Derm: Scattered patches of ecchymotic discoloration to skin at the ankle bilaterally, surrounded by areas of erythema, no open lesions, no malodor, no drainage Ortho: Pain on palpation to the discolored areas, could not assess patient MSK due to altered mental status - Neurological Exam Neurological Exam: Alert, Awake, Oriented x3 - Psychiatric Exam Psychiatric exam: Normal Affect, Normal Mood Assessment and Plan - Assessment and Plan (Free Text) Assessment: 87 y/o female patient seen and evaluated at bedside for pain and ecchymotic discoloration to feet and ankle bilaterally Plan: Patient seen and evaluated at bedside Plan discussed with attending Dr. De León Chart, labs and vitals reviewed- Afebrile, WBC (01/29) 20.9, BUN (01/29) 79, Cr () 2.3 WBC trending up, and BUN/Cr are trending down Lower Extremity US B/L (01/27): no evidence of DVT As per Medicine team (recs appreciated): - patient will continue IV hydration with NSS 100 cc/hr - BS controlled with Januvia, 50 mg PO daily - Blood pressure stable, continue Amlodipine - r/o drug reactions (patient was put on Depakote for behavioral control in [facility] living) - R/o C dif Colitis, patient currently on Flagyl 500 mg PO Q8 - WBC 20.9, Urine and Blo[place] curltures pending, C. Diff Toxin A/B test pending, ID consult pending As per Nephrology team (recs appreciated): - no need for acute renal replacement therapy at this time - low BP, hold BP meds - patient not on ACI/ARB due to AILEEN, monitor input/output, and IVF as 0.45% 2 100 ml/hr From Podiatry standpoint, patient will be evaluated daily, no surgical intervention at this time No dressing applied to feet at this time Podiatry will continue to follow patient while in-house
[2018-01-29] MEDS: Pantoprazole 40 mg EC Tab PO SCH (09:15)
[2018-01-29 09:51] LABS: BANDS 6 % (0-2); LYMPHOCYTE 5 % (20-50); MONOCYTE 3 % (0-10); NEUTROPHIL 86 % (42-75); PLATELET ESTIMATE NORMAL (NORMAL); TOTAL CELLS COUNTED 100
--- NOTE | 2018-01-29 11:24 | CP.PCM.PN ---
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 with ? mg proteinuria (R80.9) likely due to DM/HTN/age related decline Anemia (D64.9), Bandemia acute gastroenteritis ? C diff Plan No acute need for renal replacement therapy at this time. BP low side, hold BP meds, avoid hypotension Patient not on ACEI/ARB due to AILEEN Monitor Input/Output, daily weights and renal function with basic metabolic panel IVF as 0.45% @ 100 ml/hr Check urine Na/cr, spot protein/creatinine and albumin/creatinine ratio, renal sonogram. Urine for eosinophils, CPK, uric acid. Check for 25-OH vitamin D, iPTH, phosphorus level, iron studies Dose meds/antibiotics for reduced GFR. Avoid fleets enema/magnesium based laxatives. Avoid nephrotoxins/NSAIDs/ iodinated contrast (unless needed emergently) Glycemic control Further work up/management as per primary team Thanks for allowing me to participate in care of your patient. Will follow patient with you. Please call if any Qs Dr Steve Putnam Office: [phone] Chief Complaint; unable reason for consult: AILEEN HPI: Pt is a 87 F with hx of diabetes Mellitus ( years), hypertension (years) dementia, CKD presented with complaints of AMS and found to have AILEEN. also with loose stool. recently treated with cipro. Denies OTC/herbal meds or NSAIDs No recent iodinated contrast exposure. Noted obvious episodes of low BP (82/30). ROS: pt unable to provide any hx due to AMS and dementia Physical Examination: General Appearance: Comfortable, in no acute respiratory distress, co-operative . elderly female, better appearing Vitals reviewed and noted as below Head; Atraumatic, normocephalic ENT: no ulcers no thrush. Tongue is midline/dry. Oropharynx: no rash or ulcers. EYES: Pupils are equal, round and reactive to light accommodation. Eye muscles and extraocular movement intact. Sclera is anicteric. Neck; supple no lymphadenopathy, no thyromegaly or bruit Lungs: Normal respiratory rate/effort. Breath sounds bilateral equal and clear Heart: Normal rate. s1s2 normal. No rub or gallop. Extremities: no edema. No varicose veins Neurological: Patient is demented with AMS Skin: Warm and dry. Normal turgor. No rash. Palpitation: Normal elasticity for age Abdomen: Abdomen is soft. Bowel sounds +. There is abdominal tenderness, no guarding/rigidity no organomegaly Psych: lack insight MSK: no joint tenderness or swelling. Digits and nails normal, no deformity : kidney or bladder not palpable Labs/imaging reviewed. Past medical history, past surgical history, family history, social history, allergy reviewed and noted as below Family hx: no hx of CKD. Rest non-contributory UA 30 protein no blood Objective - Vital Signs/Intake and Output Vital Signs (last 24 hours): Temp Pulse Resp BP Pulse Ox 98.4 F 89 18 128/62 95 01/29/18 08:02 01/29/18 08:02 01/29/18 08:02 01/29/18 08:02 01/29/18 08:02 - Medications Medications: Current Medications Acetaminophen (Tylenol 325mg Tab) 650 mg PO Q4 PRN PRN Reason: TEMP OVER 101 Acetaminophen (Tylenol 325mg Tab) 650 mg PO Q4 PRN PRN Reason: Pain, Mild (1-3) Allopurinol (Zyloprim) 100 mg PO DAILY [facility] Last Admin: 01/29/18 09:16 Dose: 100 mg Atorvastatin Calcium (Lipitor) 40 mg PO HS [facility] Last Admin: 01/28/18 22:00 Dose: 40 mg Bisacodyl (Dulcolax) 10 mg [place] DAILY PRN PRN Reason: NO BOWEL MOVEMENT X 3 DAYS Heparin Sodium (Porcine) (Heparin) 5,000 units SC Q12 [facility] PRN Reason: Protocol Last Admin: 01/29/18 09:15 Dose: 5,000 units Piperacillin Sod/Tazobactam (Sod 2.25 gm/ Sodium Chloride) 100 mls @ 100 mls/ hr IVPB Q6 [facility] PRN Reason: Protocol Last Admin: 01/29/18 06:47 Dose: 100 mls/hr Sodium Chloride (Sodium Chloride 0.9%) 1,000 mls @ 200 mls/hr IV .Q5H [facility] Stop: 01/29/18 12:08 Last Admin: 01/28/18 12:54 Dose: 200 mls/hr Memantine (Namenda) 10 mg PO BID [facility] Last Admin: 01/29/18 09:15 Dose: 10 mg Metronidazole (Flagyl) 500 mg PO Q8 [facility] PRN Reason: Protocol Last Admin: 01/29/18 09:14 Dose: 500 mg Pantoprazole Sodium (Protonix Ec Tab) 40 mg PO DAILY [facility] Last Admin: 01/29/18 09:15 Dose: 40 mg Sitagliptin Phosphate (Januvia) 50 mg PO DAILY [facility] Last Admin: 01/29/18 09:15 Dose: 50 mg - Labs Labs: 01/29/18 05:30 01/29/18 05:30
--- NOTE | 2018-01-29 12:52 | CP.PCM.PN ---
Subjective - Date & Time of Evaluation Date of Evaluation: 01/29/18 Time of Evaluation: 12:52 - Subjective Subjective: pt had small BM awaitng CDIFF, procalcitonin positive no clear source of urinary, pulmonary infection GI sx, will await results hd stable nad Objective - Vital Signs/Intake and Output Vital Signs (last 24 hours): Temp Pulse Resp BP Pulse Ox 98.5 F 83 18 115/53 L 96 01/29/18 12:11 01/29/18 12:11 01/29/18 12:11 01/29/18 12:11 01/29/18 12:11 Vitals Reviewed GEN: WDWN, alert, cooperative HEENT: NCAT, PERRL, EOMI HEART: RRR, +S1S2, NO MRG LUNG: CTAB, NO WRR ABD: soft, NT, ND, No HSM, No masses EXT: normal pedal pulses, normal capillary refill NEURO: awake, alert, no focal deficits SKIN: warm, dry PSYCH: normal mood, normal affect - Medications Medications: Current Medications Acetaminophen (Tylenol 325mg Tab) 650 mg PO Q4 PRN PRN Reason: TEMP OVER 101 Acetaminophen (Tylenol 325mg Tab) 650 mg PO Q4 PRN PRN Reason: Pain, Mild (1-3) Allopurinol (Zyloprim) 100 mg PO DAILY [facility] Last Admin: 01/29/18 09:16 Dose: 100 mg Atorvastatin Calcium (Lipitor) 40 mg PO HS [facility] Last Admin: 01/28/18 22:00 Dose: 40 mg Bisacodyl (Dulcolax) 10 mg [place] DAILY PRN PRN Reason: NO BOWEL MOVEMENT X 3 DAYS Heparin Sodium (Porcine) (Heparin) 5,000 units SC Q12 [facility] PRN Reason: Protocol Last Admin: 01/29/18 09:15 Dose: 5,000 units Piperacillin Sod/Tazobactam (Sod 2.25 gm/ Sodium Chloride) 100 mls @ 100 mls/ hr IVPB Q6 [facility] PRN Reason: Protocol Last Admin: 01/29/18 06:47 Dose: 100 mls/hr Dextrose/Lactated Ringer's (Dextrose 5%/Lactated Ringer's) 1,000 mls @ 80 mls/ hr IV .[id number] [facility] Stop: 01/30/18 12:50 Vancomycin HCl 1,000 mg/ (Sodium Chloride) 250 mls @ 250 mls/hr IVPB DAILY [facility] PRN Reason: Protocol Memantine (Namenda) 10 mg PO BID [facility] Last Admin: 01/29/18 09:15 Dose: 10 mg Metronidazole (Flagyl) 500 mg PO Q8 [facility] PRN Reason: Protocol Last Admin: 01/29/18 09:14 Dose: 500 mg Pantoprazole Sodium (Protonix Ec Tab) 40 mg PO DAILY [facility] Last Admin: 01/29/18 09:15 Dose: 40 mg Sitagliptin Phosphate (Januvia) 50 mg PO DAILY [facility] Last Admin: 01/29/18 09:15 Dose: 50 mg - Labs Labs: 01/29/18 05:30 01/29/18 05:30 Assessment and Plan - Assessment and Plan (Free Text) Plan: 87 yo female with history of DM2, HTN, HLD, Dementia and CKD brought in from jail because of worsening renal function and generalized weakness. Patient was brought to [facility] in January 02 because she was not able to do her ADLs but was still able to ambulate with her cane. Family noted that she had deteriorated since then and was unable to ambulate even with a walker. She was given Cipro for a week the first few days but didn't say for what. Her feet and ankle was swollen a week ago but since then have subsided leaving blackish necrotic areas on both feet sorrounded with mini dark red spots. She also started having diarrhea a week ago. will continue abx await cdiff results 1. Acute on CKD worsening renal function probably secondary to infection r/o drug reaction specially with skin lesions on both legs and feet patient was put on Divalproex in jail for behaviour control renal consult with Dr Herman continue IV hydration with NSS 100cc/hr 2. Dementia CT scan of head: chronic degenerative changes unable to accomplish ADLs after admission to jail maybe secondary to undiscovered CVA PT evaluation and management 3. DM2 BS controlled accucheck ACHS with Lispro coverage Januvia 50mg PO daily HgA1C pending 4. HTN BP stable continue Amlodipine 5. Swelling of both Feet/Ankle petechiae like lesions surrounding black necrotic lesions on both feet r/o drug eruptions (patient was put on Depakote for behavioral control in jail) podiatry on board venous and arterial doppler of both legs: negative for DVT and arterial occlusion 6. Diarrhea R/O C dif colitis patient previously on Cipro a week ago? contact isolation Flagyl 500mg PO q 8hrs 7. Elevated Bands WBC elevated to 19.3 afebrile blood and urine culture: pending Vanco 1gm IV Zosyn 2.25gm IV q 6hrs ID consult with Dr Akhtar 8. DVT prophylaxis Heparin 5000 units SC q 12hrs
[2018-01-29] MEDS ORDERED: Dextrose 5%/Lactated Ringer's 1,000 ML IV SCH (13:00)
--- NOTE | 2018-01-29 15:59 | CP.PCM.PN ---
Subjective - Date & Time of Evaluation Date of Evaluation: 01/29/18 Time of Evaluation: 16:00 - Subjective Subjective: I D HOTE AWAIT C.DIFF VANCO TROUGH IS 10 BANDS ARE 6(DECREASED) BUT WBC IS INCREASED AT 20.9 NO CHANGE YET IN ANTIBIOTIC COVERAGE Objective - Vital Signs/Intake and Output Vital Signs (last 24 hours): Temp Pulse Resp BP Pulse Ox 98.5 F 83 18 115/53 L 96 01/29/18 12:11 01/29/18 12:11 01/29/18 12:11 01/29/18 12:11 01/29/18 12:11 - Medications Medications: Current Medications Acetaminophen (Tylenol 325mg Tab) 650 mg PO Q4 PRN PRN Reason: TEMP OVER 101 Acetaminophen (Tylenol 325mg Tab) 650 mg PO Q4 PRN PRN Reason: Pain, Mild (1-3) Allopurinol (Zyloprim) 100 mg PO DAILY [facility] Last Admin: 01/29/18 09:16 Dose: 100 mg Atorvastatin Calcium (Lipitor) 40 mg PO HS [facility] Last Admin: 01/28/18 22:00 Dose: 40 mg Bisacodyl (Dulcolax) 10 mg [place] DAILY PRN PRN Reason: NO BOWEL MOVEMENT X 3 DAYS Heparin Sodium (Porcine) (Heparin) 5,000 units SC Q12 [facility] PRN Reason: Protocol Last Admin: 01/29/18 09:15 Dose: 5,000 units Piperacillin Sod/Tazobactam (Sod 2.25 gm/ Sodium Chloride) 100 mls @ 100 mls/ hr IVPB Q6 [facility] PRN Reason: Protocol Last Admin: 01/29/18 06:47 Dose: 100 mls/hr Dextrose/Lactated Ringer's (Dextrose 5%/Lactated Ringer's) 1,000 mls @ 80 mls/ hr IV .[id number] [facility] Stop: 01/30/18 12:50 Vancomycin HCl 1 gm/ Sodium (Chloride) 250 mls @ 166.667 mls/hr IVPB DAILY [facility] PRN Reason: Protocol Memantine (Namenda) 10 mg PO BID [facility] Last Admin: 01/29/18 09:15 Dose: 10 mg Metronidazole (Flagyl) 500 mg PO Q8 [facility] PRN Reason: Protocol Last Admin: 01/29/18 09:14 Dose: 500 mg Pantoprazole Sodium (Protonix Ec Tab) 40 mg PO DAILY [facility] Last Admin: 01/29/18 09:15 Dose: 40 mg Sitagliptin Phosphate (Januvia) 25 mg PO DAILY [facility] - Labs Labs: 01/29/18 05:30 01/29/18 05:30
--- NOTE | 2018-01-30 07:36 | CP.PCM.PN ---
Subjective - Date & Time of Evaluation Date of Evaluation: 01/30/18 Time of Evaluation: 07:34 - Subjective Subjective: 87 year old female seen and evaluated for bilateral lower extremity skin discoloration and ecchymosis. Patient is resting comfortably in bed. Patient is unable to communicate due to dementia. As per nursing, no overnight acute events. Objective - Vital Signs/Intake and Output Vital Signs (last 24 hours): Temp Pulse Resp BP Pulse Ox 98.9 F 79 18 144/69 96 01/30/18 00:11 01/30/18 00:11 01/30/18 00:11 01/30/18 00:11 01/30/18 00:11 - Medications Medications: Current Medications Acetaminophen (Tylenol 325mg Tab) 650 mg PO Q4 PRN PRN Reason: TEMP OVER 101 Acetaminophen (Tylenol 325mg Tab) 650 mg PO Q4 PRN PRN Reason: Pain, Mild (1-3) Allopurinol (Zyloprim) 100 mg PO DAILY [facility] Last Admin: 01/29/18 09:16 Dose: 100 mg Atorvastatin Calcium (Lipitor) 40 mg PO HS [facility] Last Admin: 01/29/18 22:32 Dose: 40 mg Bisacodyl (Dulcolax) 10 mg [place] DAILY PRN PRN Reason: NO BOWEL MOVEMENT X 3 DAYS Heparin Sodium (Porcine) (Heparin) 5,000 units SC Q12 [facility] PRN Reason: Protocol Last Admin: 01/29/18 22:31 Dose: 5,000 units Piperacillin Sod/Tazobactam (Sod 2.25 gm/ Sodium Chloride) 100 mls @ 100 mls/ hr IVPB Q6 [facility] PRN Reason: Protocol Last Admin: 01/29/18 22:32 Dose: 100 mls/hr Dextrose/Lactated Ringer's (Dextrose 5%/Lactated Ringer's) 1,000 mls @ 80 mls/ hr IV .[id number] [facility] Stop: 01/30/18 12:50 Last Admin: 01/29/18 20:00 Dose: 80 mls/hr Vancomycin HCl 1 gm/ Sodium (Chloride) 250 mls @ 166.667 mls/hr IVPB DAILY [facility] PRN Reason: Protocol Last Admin: 01/29/18 15:34 Dose: 166.667 mls/hr Memantine (Namenda) 10 mg PO BID [facility] Last Admin: 01/29/18 16:37 Dose: 10 mg Metronidazole (Flagyl) 500 mg PO Q8 [facility] PRN Reason: Protocol Last Admin: 01/30/18 01:33 Dose: 500 mg Pantoprazole Sodium (Protonix Ec Tab) 40 mg PO DAILY [facility] Last Admin: 01/29/18 09:15 Dose: 40 mg Sitagliptin Phosphate (Januvia) 25 mg PO DAILY [facility] - Labs Labs: 01/29/18 05:30 01/29/18 05:30 - Constitutional Appears: Well, Non-toxic, No Acute Distress - Head Exam Head Exam: ATRAUMATIC, NORMOCEPHALIC - Extremities Exam Additional comments: Vasc: DP and PT 2/4 bilaterally, Cap refill < 3 sec to all digits, temp gradient warm to cool, No edema bilaterally Ortho: Pain upon palpation to the ecchymotic areas Neuro: Could not assess neuro due to patient's altered mental status Derm: Patches of ecchymotic discoloration to skin at the level of the ankle bilaterally, diffuse areas of erythema to ankle, no open lesions, no malodor, no drainage, no clinical signs of infection - Neurological Exam Neurological Exam: Alert, Awake Assessment and Plan - Assessment and Plan (Free Text) Assessment: 87 year old female patient seen and evaluated for pain and ecchymotic discoloration to feet and ankles bilaterally Plan: Patient seen and evaluated at bedside Plan discussed with attending Dr. De León Chart, labs and vitals reviewed- Afebrile 98.9 (01/30), WBC trending up 20.9 () Lower Extremity US B/L (01/27): no evidence of DVT As per Medicine team (recs appreciated): - Rule out drug reactions (patient was put on Depakote for behavioral control in intermediate) - Rule out C diff, patient currently on Flagyl 500 mg PO Q8 - WBC 20.9, Urine and [place] curltures pending, C. Diff Toxin A/B test pending, ID consult pending As per Nephrology team (recs appreciated): - no need for acute renal replacement therapy at this time From Podiatry standpoint, patient will be evaluated twice a week, no surgical intervention at this time No dressing applied to bilateral lower extremities Patient to continue to wear multipodus boots at all times while in bed Podiatry will continue to follow patient while in-house
[2018-01-30] MEDS: Pantoprazole 40 mg EC Tab PO SCH (08:35)
--- NOTE | 2018-01-30 10:57 | CP.PCM.PN ---
Subjective - Date & Time of Evaluation Date of Evaluation: 01/30/18 Time of Evaluation: 10:56 - Subjective Subjective: Patient M bed not in acute distress. Vital sign noted to be stable. Nausea no vomiting Objective - Vital Signs/Intake and Output Vital Signs (last 24 hours): Temp Pulse Resp BP Pulse Ox 98.9 F 79 18 144/69 96 01/30/18 00:11 01/30/18 00:11 01/30/18 00:11 01/30/18 00:11 01/30/18 00:11 - Medications Medications: Current Medications Acetaminophen (Tylenol 325mg Tab) 650 mg PO Q4 PRN PRN Reason: TEMP OVER 101 Acetaminophen (Tylenol 325mg Tab) 650 mg PO Q4 PRN PRN Reason: Pain, Mild (1-3) Allopurinol (Zyloprim) 100 mg PO DAILY [facility] Last Admin: 01/30/18 08:35 Dose: 100 mg Atorvastatin Calcium (Lipitor) 40 mg PO HS [facility] Last Admin: 01/29/18 22:32 Dose: 40 mg Bisacodyl (Dulcolax) 10 mg [place] DAILY PRN PRN Reason: NO BOWEL MOVEMENT X 3 DAYS Heparin Sodium (Porcine) (Heparin) 5,000 units SC Q12 [facility] PRN Reason: Protocol Last Admin: 01/30/18 08:34 Dose: 5,000 units Piperacillin Sod/Tazobactam (Sod 2.25 gm/ Sodium Chloride) 100 mls @ 100 mls/ hr IVPB Q6 [facility] PRN Reason: Protocol Last Admin: 01/30/18 08:32 Dose: 100 mls/hr Dextrose/Lactated Ringer's (Dextrose 5%/Lactated Ringer's) 1,000 mls @ 80 mls/ hr IV .[id number] [facility] Stop: 01/30/18 12:50 Last Admin: 01/29/18 20:00 Dose: 80 mls/hr Vancomycin HCl 1 gm/ Sodium (Chloride) 250 mls @ 166.667 mls/hr IVPB DAILY [facility] PRN Reason: Protocol Last Admin: 01/30/18 08:33 Dose: 166.667 mls/hr Memantine (Namenda) 10 mg PO BID [facility] Last Admin: 01/30/18 08:34 Dose: 10 mg Metronidazole (Flagyl) 500 mg PO Q8 [facility] PRN Reason: Protocol Last Admin: 01/30/18 08:34 Dose: 500 mg Pantoprazole Sodium (Protonix Ec Tab) 40 mg PO DAILY [facility] Last Admin: 01/30/18 08:35 Dose: 40 mg Sitagliptin Phosphate (Januvia) 25 mg PO DAILY [facility] Last Admin: 01/30/18 08:35 Dose: 25 mg - Labs Labs: 01/29/18 05:30 01/29/18 05:30 - Constitutional Appears: No Acute Distress - Neck Exam Neck Exam: absent: Lymphadenopathy - Cardiovascular Exam Cardiovascular Exam: absent: Gallop, JVD, Rubs - GI/Abdominal Exam GI & Abdominal Exam: Soft - Extremities Exam Extremities Exam: absent: Calf Tenderness - Back Exam Back Exam: absent: CVA tenderness (L), CVA tenderness (R) - Neurological Exam Neurological Exam: Alert - Skin Skin Exam: absent: Cyanosis Assessment and Plan (1) Acute renal insufficiency Assessment & Plan: Acute Kidney Injury (N17.9) likely due to pre-renal state, hypotension leading to ATN Hypernatremia 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
--- NOTE | 2018-01-30 13:39 | CP.PCM.PN ---
<Zhane Sheehan - Last Filed: 01/30/18 13:54> Subjective - Date & Time of Evaluation Date of Evaluation: 01/30/18 Time of Evaluation: 08:40 - Subjective Subjective: Patient seen and examined at bedside with Dr. Hensley. She is sitting comfortably and denies any current complaints, patient suffers from dementia. Nurse reports that she has had loose, non-formed stool, one episode yesterday and one episode this morning. The nurse also reports poor oral intake. Daughter was in the room, Meryl: [phone]. She was counseled on C.Diff and the current antibiotics her mother is on. Objective - Vital Signs/Intake and Output Vital Signs (last 24 hours): Temp Pulse Resp BP Pulse Ox 98.4 F 81 20 131/74 95 01/30/18 12:37 01/30/18 12:37 01/30/18 12:37 01/30/18 12:37 01/30/18 12:37 - Medications Medications: Current Medications Acetaminophen (Tylenol 325mg Tab) 650 mg PO Q4 PRN PRN Reason: TEMP OVER 101 Acetaminophen (Tylenol 325mg Tab) 650 mg PO Q4 PRN PRN Reason: Pain, Mild (1-3) Allopurinol (Zyloprim) 100 mg PO DAILY [facility] Last Admin: 01/30/18 08:35 Dose: 100 mg Atorvastatin Calcium (Lipitor) 40 mg PO HS [facility] Last Admin: 01/29/18 22:32 Dose: 40 mg Bisacodyl (Dulcolax) 10 mg ID DAILY PRN PRN Reason: NO BOWEL MOVEMENT X 3 DAYS Heparin Sodium (Porcine) (Heparin) 5,000 units SC Q12 [facility]ARA PRN Reason: Protocol Last Admin: 01/30/18 08:34 Dose: 5,000 units Piperacillin Sod/Tazobactam (Sod 2.25 gm/ Sodium Chloride) 100 mls @ 100 mls/ hr IVPB Q6 [facility]ARA PRN Reason: Protocol Last Admin: 01/30/18 08:32 Dose: 100 mls/hr Vancomycin HCl 1 gm/ Sodium (Chloride) 250 mls @ 166.667 mls/hr IVPB DAILY [facility] PRN Reason: Protocol Last Admin: 01/30/18 08:33 Dose: 166.667 mls/hr Memantine (Namenda) 10 mg PO BID [facility] Last Admin: 01/30/18 08:34 Dose: 10 mg Metronidazole (Flagyl) 500 mg PO Q8 [facility] PRN Reason: Protocol Last Admin: 01/30/18 08:34 Dose: 500 mg Pantoprazole Sodium (Protonix Ec Tab) 40 mg PO DAILY [facility] Last Admin: 01/30/18 08:35 Dose: 40 mg Sitagliptin Phosphate (Januvia) 25 mg PO DAILY [facility] Last Admin: 01/30/18 08:35 Dose: 25 mg - Labs Labs: 01/29/18 05:30 01/29/18 05:30 - Constitutional Appears: Well, Non-toxic, No Acute Distress - Head Exam Head Exam: NORMAL INSPECTION - Eye Exam Eye Exam: Normal appearance - ENT Exam ENT Exam: Mucous Membranes Moist - Neck Exam Neck Exam: Normal Inspection. absent: Lymphadenopathy, Tenderness, Thyromegaly - Respiratory Exam Respiratory Exam: Clear to Ausculation Bilateral, NORMAL BREATHING PATTERN. absent: Chest Wall Tenderness, Decreased Breath Sounds, Prolonged Expiratory Phase, Rales, Rhonchi, Wheezes, Respiratory Distress, Stridor - Cardiovascular Exam Cardiovascular Exam: REGULAR RHYTHM, RRR, +S1, +S2. absent: Clicks, Diastolic murmur, Gallop, JVD, Rubs, Murmur - GI/Abdominal Exam GI & Abdominal Exam: Soft, Normal Bowel Sounds. absent: Distended, Firm, Guarding, Rigid, Tenderness, Hernia, Organomegaly, Pulsatile Mass, Rebound - Extremities Exam Extremities Exam: Normal Inspection, Pedal Edema (bilateral edema ankles and feet. + bilateral ecchymosis on the ankles. ) - Neurological Exam Neurological Exam: Alert, Awake Additional comments: Dementia. - Psychiatric Exam Psychiatric exam: Normal Affect, Normal Mood - Skin Skin Exam: Dry, Intact, Normal Color, Warm Assessment and Plan (1) AILEEN (acute kidney injury) Status: Acute (2) Dementia Status: Acute (3) DM2 (diabetes mellitus, type 2) Status: Acute (4) HTN (hypertension) Status: Acute (5) Edema of both ankles Status: Acute (6) Diarrhea Status: Acute (7) Bandemia Status: Acute (8) DVT prophylaxis Status: Acute - Assessment and Plan (Free Text) Assessment: 87 yo female with history of DM2, HTN, HLD, Dementia and CKD brought in from [facility] because of worsening renal function and generalized weakness. She is originally from [facility], since January 02. She was brought there because she was not able to do her ADLs but was still able to ambulate with her cane. Family noted that she had deteriorated since then and was unable to ambulate even with a walker. Family reports she was given Cipro for a week but they were unclear as to the reasoning for Cipro. She began having diarrhea a week ago and continues to have loose, non-formed stool. - Patient also has bilateral lower extremity skin discoloration and ecchymosis Plan: 1. Acute Kidney injury- possibly secondary to infection or drug reaction as the patient was on divalproex at [facility]. - Nephro consult: Continue gentle hydration - continue IV hydration with normal saline. 2. Dementia CT scan of head: chronic degenerative changes unable to accomplish ADLs after admission to [facility]way maybe secondary to undiscovered CVA Physical therapy is following. 3. DM2 BS controlled accucheck ACHS with Lispro coverage Januvia 50mg PO daily HgA1C 01/28/18: 5.9 4. HTN BP stable; continue Amlodipine 5. Bilateral edema of Feet/Ankle petechiae like lesions surrounding black necrotic lesions on both feet r/o drug eruptions (patient was put on Depakote for behavioral control in [facility]-way) podiatry will evaluate twice a week, no change in management at this point. venous and arterial doppler of both legs: negative for DVT and arterial occlusion 6. Diarrhea- Patient was previously on ciprofloxacin unknown duration of time. R/O C dif colitis: pending Ab and toxin. Continue Flagyl 500mg PO q 8hrs 7. Bandemia WBC elevated to 20.9; afebrile blood and urine culture both negative for growth. Continue Vanco 1gm IV Continue Zosyn 2.25gm IV q 6hrs ID consult with Dr Akhtar: Vanco trough is 10.6; continue current management until C. Diff cultures come back. 8. DVT prophylaxis Continue Heparin 5000 units SC q 12hrs <Douglas Hensley - Last Filed: 01/31/18 16:42> Objective - Vital Signs/Intake and Output Vital Signs (last 24 hours): Temp Pulse Resp BP Pulse Ox 97.8 F 79 20 119/54 L 96 01/31/18 15:43 01/31/18 15:43 01/31/18 15:43 01/31/18 15:43 01/31/18 15:43 - Medications Medications: Current Medications Acetaminophen (Tylenol 325mg Tab) 650 mg PO Q4 PRN PRN Reason: TEMP OVER 101 Acetaminophen (Tylenol 325mg Tab) 650 mg PO Q4 PRN PRN Reason: Pain, Mild (1-3) Allopurinol (Zyloprim) 100 mg PO DAILY [facility] Last Admin: 01/31/18 09:15 Dose: 100 mg Atorvastatin Calcium (Lipitor) 40 mg PO HS [facility] Last Admin: 01/30/18 21:23 Dose: 40 mg Bisacodyl (Dulcolax) 10 mg ID DAILY PRN PRN Reason: NO BOWEL MOVEMENT X 3 DAYS Heparin Sodium (Porcine) (Heparin) 5,000 units SC Q12 [facility] PRN Reason: Protocol Last Admin: 01/31/18 09:09 Dose: 5,000 units Piperacillin Sod/Tazobactam (Sod 2.25 gm/ Sodium Chloride) 100 mls @ 100 mls/ hr IVPB Q6 [facility] PRN Reason: Protocol Last Admin: 01/31/18 16:27 Dose: 100 mls/hr Vancomycin HCl 1 gm/ Sodium (Chloride) 250 mls @ 166.667 mls/hr IVPB DAILY [facility] PRN Reason: Protocol Last Admin: 01/31/18 09:10 Dose: 166.667 mls/hr Dextrose/Sodium Chloride (Dextrose 5%/0.45% Ns 1000 Ml) 1,000 mls @ 60 mls/hr IV .[id number] [facility] Stop: 02/01/18 08:06 Last Admin: 01/31/18 09:08 Dose: 60 mls/hr Memantine (Namenda) 10 mg PO BID [facility] Last Admin: 01/31/18 16:28 Dose: 10 mg Metronidazole (Flagyl) 500 mg PO Q8 [facility] PRN Reason: Protocol Last Admin: 01/31/18 16:28 Dose: 500 mg Pantoprazole Sodium (Protonix Ec Tab) 40 mg PO DAILY [facility] Last Admin: 01/31/18 09:16 Dose: 40 mg Sitagliptin Phosphate (Januvia) 25 mg PO DAILY [facility] Last Admin: 01/31/18 09:16 Dose: 25 mg - Labs Labs: 01/31/18 04:20 07/31/18 04:20 Attending/Attestation - Attestation I have personally seen and examined this patient.: Yes I have fully participated in the care of the patient.: Yes I have reviewed all pertinent clinical information, including history, physical exam and plan: Yes Notes (Text): Diarrhea Delerium dementia dehydration possible c diff Acute renal failure improving monitor creatnine
[2018-01-30] MEDS: Sodium Chloride 0.9% 1,000 ML IV SCH (16:21)
[2018-01-30 18:30] LABS: CREATININE, RANDOM URINE 39.6 mg/dL
[2018-01-31 06:06] LABS: HEMOGLOBIN 10.9 g/dL (12.0-16.0); MEAN CELL VOLUME 81.3 fl (81.0-99.0); MEAN CORPUSCULAR HEMOGLOBIN 27.1 pg (27.0-31.0); MEAN CORPUSCULAR HGB CONC 33.3 g/dL (33.0-37.0); RBC 4.03 Mil/uL (3.80-5.20); RED CELL DISTRIBUTION WIDTH 17.8 % (11.5-14.5); WHITE BLOOD COUNT 11.4 K/uL (4.8-10.8)
[2018-01-31 06:24] LABS: ALB/GLOB RATIO 0.7 (1.0-2.1); ALBUMIN 2.4 g/dL (3.5-5.0); CALCIUM 8.4 mg/dL (8.4-10.2)
[2018-01-31] MEDS ORDERED: Dextrose 5%/0.45% NS 1,000 ML IV SCH (08:15)
[2018-01-31] MEDS: Pantoprazole 40 mg EC Tab PO SCH (09:16)
--- NOTE | 2018-01-31 11:29 | CP.PCM.PN ---
Subjective - Date & Time of Evaluation Date of Evaluation: 01/31/18 Time of Evaluation: 11:28 - Subjective Subjective: patient in bed Nausea no vomiting patient verbalizing very little Objective - Vital Signs/Intake and Output Vital Signs (last 24 hours): Temp Pulse Resp BP Pulse Ox 99.0 F 84 20 165/87 H 98 01/31/18 08:30 01/31/18 08:30 01/31/18 08:30 01/31/18 08:30 01/31/18 08:30 - Medications Medications: Current Medications Acetaminophen (Tylenol 325mg Tab) 650 mg PO Q4 PRN PRN Reason: TEMP OVER 101 Acetaminophen (Tylenol 325mg Tab) 650 mg PO Q4 PRN PRN Reason: Pain, Mild (1-3) Allopurinol (Zyloprim) 100 mg PO DAILY [facility] Last Admin: 01/31/18 09:15 Dose: 100 mg Atorvastatin Calcium (Lipitor) 40 mg PO HS [facility] Last Admin: 01/30/18 21:23 Dose: 40 mg Bisacodyl (Dulcolax) 10 mg [place] DAILY PRN PRN Reason: NO BOWEL MOVEMENT X 3 DAYS Heparin Sodium (Porcine) (Heparin) 5,000 units SC Q12 [facility] PRN Reason: Protocol Last Admin: 01/31/18 09:09 Dose: 5,000 units Piperacillin Sod/Tazobactam (Sod 2.25 gm/ Sodium Chloride) 100 mls @ 100 mls/ hr IVPB Q6 [facility] PRN Reason: Protocol Last Admin: 01/31/18 09:15 Dose: 100 mls/hr Vancomycin HCl 1 gm/ Sodium (Chloride) 250 mls @ 166.667 mls/hr IVPB DAILY [facility] PRN Reason: Protocol Last Admin: 01/31/18 09:10 Dose: 166.667 mls/hr Sodium Chloride (Sodium Chloride 0.9%) 1,000 mls @ 125 mls/hr IV .Q8H [facility] Stop: 01/31/18 13:41 Last Admin: 01/30/18 16:21 Dose: 125 mls/hr Dextrose/Sodium Chloride (Dextrose 5%/0.45% Ns 1000 Ml) 1,000 mls @ 60 mls/hr IV .[id number] [facility] Stop: 02/01/18 08:06 Last Admin: 07/31/18 09:08 Dose: 60 mls/hr Memantine (Namenda) 10 mg PO BID [facility] Last Admin: 01/31/18 09:16 Dose: 10 mg Metronidazole (Flagyl) 500 mg PO Q8 [facility] PRN Reason: Protocol Last Admin: 01/31/18 09:09 Dose: 500 mg Pantoprazole Sodium (Protonix Ec Tab) 40 mg PO DAILY [facility] Last Admin: 01/31/18 09:16 Dose: 40 mg Sitagliptin Phosphate (Januvia) 25 mg PO DAILY [facility] Last Admin: 01/31/18 09:16 Dose: 25 mg - Labs Labs: 01/31/18 04:20 01/31/18 04:20 - Constitutional Appears: No Acute Distress - Eye Exam Eye Exam: Conjunctival injection - ENT Exam ENT Exam: Mucous Membranes Dry - Neck Exam Neck Exam: absent: Lymphadenopathy - Respiratory Exam Respiratory Exam: NORMAL BREATHING PATTERN. 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
--- NOTE | 2018-01-31 11:59 | CP.PCM.PN ---
Subjective - Date & Time of Evaluation Date of Evaluation: 01/31/18 Time of Evaluation: 11:55 - Subjective Subjective: i d note wbc is 11 ,diff was not done will order cbc c diff likely most improvement is c metronidazole continue same rx Objective - Vital Signs/Intake and Output Vital Signs (last 24 hours): Temp Pulse Resp BP Pulse Ox 99.0 F 84 20 165/87 H 98 01/31/18 08:30 01/31/18 08:30 01/31/18 08:30 01/31/18 08:30 01/31/18 08:30 - Medications Medications: Current Medications Acetaminophen (Tylenol 325mg Tab) 650 mg PO Q4 PRN PRN Reason: TEMP OVER 101 Acetaminophen (Tylenol 325mg Tab) 650 mg PO Q4 PRN PRN Reason: Pain, Mild (1-3) Allopurinol (Zyloprim) 100 mg PO DAILY [facility] Last Admin: 01/31/18 09:15 Dose: 100 mg Atorvastatin Calcium (Lipitor) 40 mg PO HS [facility] Last Admin: 01/30/18 21:23 Dose: 40 mg Bisacodyl (Dulcolax) 10 mg [place] DAILY PRN PRN Reason: NO BOWEL MOVEMENT X 3 DAYS Heparin Sodium (Porcine) (Heparin) 5,000 units SC Q12 [facility] PRN Reason: Protocol Last Admin: 01/31/18 09:09 Dose: 5,000 units Piperacillin Sod/Tazobactam (Sod 2.25 gm/ Sodium Chloride) 100 mls @ 100 mls/ hr IVPB Q6 [facility] PRN Reason: Protocol Last Admin: 01/31/18 09:15 Dose: 100 mls/hr Vancomycin HCl 1 gm/ Sodium (Chloride) 250 mls @ 166.667 mls/hr IVPB DAILY [facility] PRN Reason: Protocol Last Admin: 01/31/18 09:10 Dose: 166.667 mls/hr Sodium Chloride (Sodium Chloride 0.9%) 1,000 mls @ 125 mls/hr IV .Q8H [facility] Stop: 01/31/18 13:41 Last Admin: 01/30/18 16:21 Dose: 125 mls/hr Dextrose/Sodium Chloride (Dextrose 5%/0.45% Ns 1000 Ml) 1,000 mls @ 60 mls/hr IV .[id number] [facility] Stop: 02/01/18 08:06 Last Admin: 01/31/18 09:08 Dose: 60 mls/hr Memantine (Namenda) 10 mg PO BID [facility] Last Admin: 01/31/18 09:16 Dose: 10 mg Metronidazole (Flagyl) 500 mg PO Q8 [facility] PRN Reason: Protocol Last Admin: 01/31/18 09:09 Dose: 500 mg Pantoprazole Sodium (Protonix Ec Tab) 40 mg PO DAILY [facility] Last Admin: 01/31/18 09:16 Dose: 40 mg Sitagliptin Phosphate (Januvia) 25 mg PO DAILY [facility] Last Admin: 01/31/18 09:16 Dose: 25 mg - Labs Labs: 01/31/18 04:20 01/31/18 04:20
--- NOTE | 2018-01-31 15:17 | CP.PCM.PN ---
Addendum entered and electronically signed by Zhane Sheehan MD 15:35: Addition to plan: 2. Hypernatremia secondary to dehydration caused by diarrhea - continue D5W hydration. Original Note: <Zhane Sheehan - Last Filed: 01/31/18 15:20> Subjective - Date & Time of Evaluation Date of Evaluation: 01/31/18 Time of Evaluation: 10:30 - Subjective Subjective: Patient seen and examined at bedside with Dr. Hensley. Patient has dementia and she reports feeling well and denies abdominal pain. She states that she has many episodes of diarrhea in one day but is unable to describe them because the diarrhea soaks the bed pad. Nurse reports it is difficult to collect the C. Diff specimen due to diarrhea soaking the diaper. Objective - Vital Signs/Intake and Output Vital Signs (last 24 hours): Temp Pulse Resp BP Pulse Ox 97.8 F 76 20 126/60 97 01/31/18 13:01 01/31/18 13:01 01/31/18 13:01 01/31/18 13:01 01/31/18 13:01 - Medications Medications: Current Medications Acetaminophen (Tylenol 325mg Tab) 650 mg PO Q4 PRN PRN Reason: TEMP OVER 101 Acetaminophen (Tylenol 325mg Tab) 650 mg PO Q4 PRN PRN Reason: Pain, Mild (1-3) Allopurinol (Zyloprim) 100 mg PO DAILY [facility] Last Admin: 01/31/18 09:15 Dose: 100 mg Atorvastatin Calcium (Lipitor) 40 mg PO HS [facility] Last Admin: 01/30/18 21:23 Dose: 40 mg Bisacodyl (Dulcolax) 10 mg [place] DAILY PRN PRN Reason: NO BOWEL MOVEMENT X 3 DAYS Heparin Sodium (Porcine) (Heparin) 5,000 units SC Q12 [facility] PRN Reason: Protocol Last Admin: 01/31/18 09:09 Dose: 5,000 units Piperacillin Sod/Tazobactam (Sod 2.25 gm/ Sodium Chloride) 100 mls @ 100 mls/ hr IVPB Q6 [facility] PRN Reason: Protocol Last Admin: 01/31/18 09:15 Dose: 100 mls/hr Vancomycin HCl 1 gm/ Sodium (Chloride) 250 mls @ 166.667 mls/hr IVPB DAILY [facility] PRN Reason: Protocol Last Admin: 01/31/18 09:10 Dose: 166.667 mls/hr Dextrose/Sodium Chloride (Dextrose 5%/0.45% Ns 1000 Ml) 1,000 mls @ 60 mls/hr IV .[id number] [facility] Stop: 02/01/18 08:06 Last Admin: 01/31/18 09:08 Dose: 60 mls/hr Memantine (Namenda) 10 mg PO BID [facility] Last Admin: 01/31/18 09:16 Dose: 10 mg Metronidazole (Flagyl) 500 mg PO Q8 [facility] PRN Reason: Protocol Last Admin: 01/31/18 09:09 Dose: 500 mg Pantoprazole Sodium (Protonix Ec Tab) 40 mg PO DAILY [facility] Last Admin: 01/31/18 09:16 Dose: 40 mg Sitagliptin Phosphate (Januvia) 25 mg PO DAILY [facility] Last Admin: 01/31/18 09:16 Dose: 25 mg - Labs Labs: 01/31/18 04:20 01/31/18 04:20 - Constitutional Appears: Well, Non-toxic, No Acute Distress - Head Exam Head Exam: NORMAL INSPECTION - Eye Exam Eye Exam: Normal appearance - ENT Exam ENT Exam: Mucous Membranes Moist. absent: Normal Oropharynx (dry mucous membranes. ) - Neck Exam Neck Exam: Normal Inspection. absent: Lymphadenopathy, Tenderness, Thyromegaly - Respiratory Exam Respiratory Exam: Clear to Ausculation Bilateral, NORMAL BREATHING PATTERN. absent: Chest Wall Tenderness, Decreased Breath Sounds, Prolonged Expiratory Phase, Rales, Rhonchi, Wheezes, Respiratory Distress, Stridor - Cardiovascular Exam Cardiovascular Exam: REGULAR RHYTHM, RRR, +S1, +S2. absent: Clicks, Diastolic murmur, Gallop, JVD, Rubs, +S4, Murmur - GI/Abdominal Exam GI & Abdominal Exam: Soft, Normal Bowel Sounds. absent: Distended, Firm, Guarding, Tenderness, Organomegaly, Pulsatile Mass, Rebound - Extremities Exam Extremities Exam: absent: Calf Tenderness, Joint Swelling, Normal Inspection ( bilateral lower extremity skin discoloration and ecchymosis.), Pedal Edema, Tenderness - Neurological Exam Neurological Exam: Alert (patient is demented. ), Awake - Psychiatric Exam Psychiatric exam: Normal Affect, Normal Mood - Skin Skin Exam: Dry, Intact, Normal Color, Warm Assessment and Plan (1) AILEEN (acute kidney injury) Status: Acute (2) Dementia Status: Acute (3) DM2 (diabetes mellitus, type 2) Status: Acute (4) HTN (hypertension) Status: Acute (5) Edema of both ankles Status: Acute (6) Diarrhea Status: Acute (7) Bandemia Status: Acute (8) DVT prophylaxis Status: Acute - Assessment and Plan (Free Text) Assessment: 87 yo female with history of DM2, HTN, HLD, Dementia and CKD [facility] because of worsening renal function and generalized weakness. Family reports she was given Cipro for a week but they were unclear as to the reasoning for Cipro. She began having diarrhea a week ago and continues to have loose, non-formed stool. - Patient also has bilateral lower extremity skin discoloration and ecchymosis - Nurse unable to obtain stool sample for C. Diff due to diarrhea soaking the diaper. Plan: 1. Acute Kidney injury- possibly secondary to infection or drug reaction as the [facility]. - Nephro consult: Continue gentle hydration - continue IV hydration with D5W. 2. Dementia CT scan of head: chronic degenerative changes Physical therapy is following. 3. DM2 BS controlled accucheck ACHS with Lispro coverage Januvia 50mg PO daily HgA1C 01/28/18: 5.9 4. HTN BP stable; continue Amlodipine 5. Bilateral edema of Feet/Ankle petechiae like lesions surrounding black necrotic lesions on both feet r/o drug eruptions (patient was put on Depakote for [facility] control [facility]) podiatry will evaluate twice a week, no change in management at this point. venous and arterial doppler of both legs: negative for DVT and arterial occlusion 6. Diarrhea- Patient was previously on ciprofloxacin unknown duration of time. R/O C dif colitis: pending Ab and toxin; pending collection of stool (unable to due to soaking thru diaper) Continue Flagyl 500mg PO q 8hrs 7. Bandemia WBC elevated to 11.4; afebrile blood and urine culture both negative for growth. Continue Vanco 1gm IV Continue Zosyn 2.25gm IV q 6hrs ID consult with Dr Akhtar: Vanco trough is 10.6; continue current management until C. Diff cultures come back. 8. DVT prophylaxis Continue Heparin 5000 units SC q 12hrs <Douglas Hensley - Last Filed: 01/31/18 16:44> Objective - Vital Signs/Intake and Output Vital Signs (last 24 hours): Temp Pulse Resp BP Pulse Ox 97.8 F 79 20 119/54 L 96 01/31/18 15:43 01/31/18 15:43 01/31/18 15:43 01/31/18 15:43 01/31/18 15:43 - Medications Medications: Current Medications Acetaminophen (Tylenol 325mg Tab) 650 mg PO Q4 PRN PRN Reason: TEMP OVER 101 Acetaminophen (Tylenol 325mg Tab) 650 mg PO Q4 PRN PRN Reason: Pain, Mild (1-3) Allopurinol (Zyloprim) 100 mg PO DAILY [facility] Last Admin: 01/31/18 09:15 Dose: 100 mg Atorvastatin Calcium (Lipitor) 40 mg PO HS [facility] Last Admin: 01/30/18 21:23 Dose: 40 mg Bisacodyl (Dulcolax) 10 mg [place] DAILY PRN PRN Reason: NO BOWEL MOVEMENT X 3 DAYS Heparin Sodium (Porcine) (Heparin) 5,000 units SC Q12 [facility] PRN Reason: Protocol Last Admin: 01/31/18 09:09 Dose: 5,000 units Piperacillin Sod/Tazobactam (Sod 2.25 gm/ Sodium Chloride) 100 mls @ 100 mls/ hr IVPB Q6 [facility] PRN Reason: Protocol Last Admin: 01/31/18 16:27 Dose: 100 mls/hr Vancomycin HCl 1 gm/ Sodium (Chloride) 250 mls @ 166.667 mls/hr IVPB DAILY [facility] PRN Reason: Protocol Last Admin: 01/31/18 09:10 Dose: 166.667 mls/hr Dextrose/Sodium Chloride (Dextrose 5%/0.45% Ns 1000 Ml) 1,000 mls @ 60 mls/hr IV .[id number] [facility] Stop: 02/01/18 08:06 Last Admin: 01/31/18 09:08 Dose: 60 mls/hr Memantine (Namenda) 10 mg PO BID [facility] Last Admin: 01/31/18 16:28 Dose: 10 mg Metronidazole (Flagyl) 500 mg PO Q8 [facility] PRN Reason: Protocol Last Admin: 01/31/18 16:28 Dose: 500 mg Pantoprazole Sodium (Protonix Ec Tab) 40 mg PO DAILY [facility] Last Admin: 01/31/18 09:16 Dose: 40 mg Sitagliptin Phosphate (Januvia) 25 mg PO DAILY [facility] Last Admin: 01/31/18 09:16 Dose: 25 mg - Labs Labs: 01/31/18 04:20 01/31/18 04:20 Attending/Attestation - Attestation I have personally seen and examined this patient.: Yes I have fully participated in the care of the patient.: Yes I have reviewed all pertinent clinical information, including history, physical exam and plan: Yes Notes (Text): Diarrhea Delerium dementia dehydration possible c diff await specimin wbc improving Acute renal failure improving monitor creatnine New Hypernatremia IV fluids D51/2ns monitor sodium
[2018-01-31] MEDS: Sodium Chloride 0.9% 1,000 ML IV SCH (15:20)
[2018-02-01] MEDS: Pantoprazole 40 mg EC Tab PO SCH (09:57)
--- NOTE | 2018-02-01 13:15 | CP.PCM.PN ---
Subjective - Date & Time of Evaluation Date of Evaluation: 02/01/18 Time of Evaluation: 13:14 - Subjective Subjective: patient is 87 years of age No significant changes patient has dementia M Vital sign noted to be stable Objective - Vital Signs/Intake and Output Vital Signs (last 24 hours): Temp Pulse Resp BP Pulse Ox 97.8 F 84 20 135/61 97 02/01/18 12:37 02/01/18 12:37 02/01/18 12:37 02/01/18 12:37 02/01/18 12:37 - Medications Medications: Current Medications Acetaminophen (Tylenol 325mg Tab) 650 mg PO Q4 PRN PRN Reason: TEMP OVER 101 Acetaminophen (Tylenol 325mg Tab) 650 mg PO Q4 PRN PRN Reason: Pain, Mild (1-3) Allopurinol (Zyloprim) 100 mg PO DAILY [facility] Last Admin: 02/01/18 09:57 Dose: 100 mg Atorvastatin Calcium (Lipitor) 40 mg PO HS [facility] Last Admin: 01/31/18 21:44 Dose: 40 mg Bisacodyl (Dulcolax) 10 mg [place] DAILY PRN PRN Reason: NO BOWEL MOVEMENT X 3 DAYS Heparin Sodium (Porcine) (Heparin) 5,000 units SC Q12 [facility] PRN Reason: Protocol Last Admin: 02/01/18 09:57 Dose: 5,000 units Memantine (Namenda) 10 mg PO BID [facility] Last Admin: 02/01/18 09:57 Dose: 10 mg Metronidazole (Flagyl) 500 mg PO Q8 [facility] PRN Reason: Protocol Last Admin: 02/01/18 09:56 Dose: 500 mg Pantoprazole Sodium (Protonix Ec Tab) 40 mg PO DAILY [facility] Last Admin: 02/01/18 09:57 Dose: 40 mg Sitagliptin Phosphate (Januvia) 25 mg PO DAILY [facility] Last Admin: 02/01/18 09:56 Dose: 25 mg - Labs Labs: 01/31/18 04:20 01/31/18 04:20 - Constitutional Appears: No Acute Distress - Eye Exam Eye Exam: Conjunctival injection - ENT Exam ENT Exam: Mucous Membranes Dry - Respiratory Exam Respiratory Exam: NORMAL BREATHING PATTERN. 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
[2018-02-01 14:28] LABS: BASO % 0.3 % (0.0-2.0); EOS # 0.2 K/uL (0.0-0.7); EOS % 1.7 % (0.0-4.0); HEMOGLOBIN 10.8 g/dL (12.0-16.0); LYMPH # 0.8 K/uL (1.0-4.3); LYMPH % 7.7 % (20.0-40.0); MEAN CELL VOLUME 81.6 fl (81.0-99.0); MEAN CORPUSCULAR HEMOGLOBIN 26.6 pg (27.0-31.0); MEAN CORPUSCULAR HGB CONC 32.6 g/dL (33.0-37.0); MEAN PLATELET VOLUME 8.8 fl (7.2-11.7); MONO # 0.6 K/uL (0.0-0.8); NEUT # 8.9 K/uL (1.8-7.0); NEUT % 84.3 % (50.0-75.0); PLATELET COUNT 239 K/uL (130-400); RBC 4.06 Mil/uL (3.80-5.20); RED CELL DISTRIBUTION WIDTH 18.3 % (11.5-14.5); WHITE BLOOD COUNT 10.6 K/uL (4.8-10.8)
[2018-02-01 14:44] LABS: CALCIUM 8.4 mg/dL (8.4-10.2)
[2018-02-01 15:16] LABS: ANISOCYTOSIS SLIGHT; EOSINOPHIL 1 % (0-7); LYMPHOCYTE 5 % (20-50); MONOCYTE 7 % (0-10); NEUTROPHIL 87 % (42-75); PLATELET ESTIMATE NORMAL (NORMAL); TOTAL CELLS COUNTED 100
[2018-02-01 15:17] LABS: HYPOCHROMIC MODERATE
[2018-02-01] MEDS ORDERED: Potassium Chloride 20 mEq ER Tab PO ONE (16:16)
--- NOTE | 2018-02-01 16:25 | CP.PCM.PN ---
Subjective - Date & Time of Evaluation Date of Evaluation: 02/01/18 Time of Evaluation: 16:00 - Subjective Subjective: Patient seen and examined. Remained confused and still having diarrhea. Objective - Vital Signs/Intake and Output Vital Signs (last 24 hours): Temp Pulse Resp BP Pulse Ox 97.9 F 82 20 167/75 H 98 02/01/18 15:41 02/01/18 15:41 02/01/18 15:41 02/01/18 15:41 02/01/18 15:41 - Medications Medications: Current Medications Acetaminophen (Tylenol 325mg Tab) 650 mg PO Q4 PRN PRN Reason: TEMP OVER 101 Acetaminophen (Tylenol 325mg Tab) 650 mg PO Q4 PRN PRN Reason: Pain, Mild (1-3) Allopurinol (Zyloprim) 100 mg PO DAILY [facility] Last Admin: 02/01/18 09:57 Dose: 100 mg Atorvastatin Calcium (Lipitor) 40 mg PO HS [facility] Last Admin: 01/31/18 21:44 Dose: 40 mg Bisacodyl (Dulcolax) 10 mg [place] DAILY PRN PRN Reason: NO BOWEL MOVEMENT X 3 DAYS Heparin Sodium (Porcine) (Heparin) 5,000 units SC Q12 [facility] PRN Reason: Protocol Last Admin: 02/01/18 09:57 Dose: 5,000 units Memantine (Namenda) 10 mg PO BID [facility] Last Admin: 02/01/18 09:57 Dose: 10 mg Metronidazole (Flagyl) 500 mg PO Q8 [facility] PRN Reason: Protocol Last Admin: 02/01/18 09:56 Dose: 500 mg Pantoprazole Sodium (Protonix Ec Tab) 40 mg PO DAILY [facility] Last Admin: 02/01/18 09:57 Dose: 40 mg Potassium Chloride (K-Dur 20 Meq Er Tab) 20 meq PO ONCE ONE Stop: 02/01/18 16:17 Sitagliptin Phosphate (Januvia) 25 mg PO DAILY [facility] Last Admin: 02/01/18 09:56 Dose: 25 mg - Labs Labs: 02/01/18 14:22 02/01/18 14:22 - Constitutional Appears: No Acute Distress, Confused, Chronically Ill - Head Exam Head Exam: ATRAUMATIC - Eye Exam Eye Exam: absent: Scleral icterus - ENT Exam ENT Exam: Mucous Membranes Moist - Neck Exam Neck Exam: absent: Meningismus - Respiratory Exam Respiratory Exam: absent: Rales, Rhonchi, Wheezes, Respiratory Distress - Cardiovascular Exam Cardiovascular Exam: REGULAR RHYTHM, +S1, +S2 - GI/Abdominal Exam GI & Abdominal Exam: Soft. absent: Tenderness - Rectal Exam Rectal Exam: Deferred - Neurological Exam Neurological Exam: Awake - Psychiatric Exam Psychiatric exam: Flat Affect - Skin Skin Exam: Dry, Intact Assessment and Plan - Assessment and Plan (Free Text) Assessment: 87 yo female with history of DM2, HTN, HLD, Dementia and CKD brought in from group home because of worsening renal function and generalized weakness. Patient was brought to [facility] in January 02 because she was not able to do her ADLs but was still able to ambulate with her cane. Family noted that she had deteriorated since then and was unable to ambulate even with a walker. She was given Cipro but not sure for what. Her feet and ankle were swollen but had since subsided. She was reported to have diarrhea since a week ago. 1. C Diff Colitis C diff Ag: + patient still having diarrhea with mucous and blood on Flagyl 500mg PO TID, 5th day 2. Acute on CKD renal function improving, BUN/Creat: 20/1.2 serum Na trending down but still elevated at 154 Dr Kevin on renal consult continue IV hydration with NSS 100cc/hr 3. Dementia CT scan of head: chronic degenerative changes continue Namenda continue PT 4. DM2 BS controlled accucheck ACHS with Lispro coverage Januvia 50mg PO daily HgA1C: 5.9 5. HTN BP slightly elevated today continue Amlodipine 6. Swelling of both Feet/Ankle petechiae like lesions sorrounding black necrotic lesions on both feet r/o drug eruptions (patient was put on Depakote for behavioural control in group home) podiatry on board venous and arterial doppler of both legs: negative for DVT and arterial occlusion off antibiotics aside from Flagyl for C diff 7. Elevated Bands WBC: 10.6, no bands seen afebrile blood and urine culture: no growth off antibiotics ID consult with Dr Akhtar 8. DVT prophylaxis Heparin 5000 units SC q 12hrs
[2018-02-01] MEDS: Sodium Chloride 0.9% 1,000 ML IV SCH (17:28)
[2018-02-02] MEDS: Sodium Chloride 0.9% 1,000 ML IV SCH (02:39)
[2018-02-02 06:45] LABS: CALCIUM 8.1 mg/dL (8.4-10.2)
--- NOTE | 2018-02-02 07:17 | CP.PCM.PN ---
Subjective - Date & Time of Evaluation Date of Evaluation: 02/02/18 Time of Evaluation: 07:14 - Subjective Subjective: Podiatry progress note for Dr. De León, 87 year old female seen and evaluated for bilateral lower extremity skin discoloration and ecchymosis. Patient is resting comfortably in bed. Patient is alert and awake, however she is unable to communicate due to dementia. Objective - Vital Signs/Intake and Output Vital Signs (last 24 hours): Temp Pulse Resp BP Pulse Ox 97.8 F 85 18 175/86 H 100 02/02/18 04:56 02/02/18 04:56 02/02/18 04:56 02/02/18 04:56 02/02/18 04:56 - Medications Medications: Current Medications Acetaminophen (Tylenol 325mg Tab) 650 mg PO Q4 PRN PRN Reason: TEMP OVER 101 Acetaminophen (Tylenol 325mg Tab) 650 mg PO Q4 PRN PRN Reason: Pain, Mild (1-3) Allopurinol (Zyloprim) 100 mg PO DAILY [facility] Last Admin: 02/01/18 09:57 Dose: 100 mg Atorvastatin Calcium (Lipitor) 40 mg PO HS [facility] Last Admin: 02/01/18 21:49 Dose: 40 mg Bisacodyl (Dulcolax) 10 mg [place] DAILY PRN PRN Reason: NO BOWEL MOVEMENT X 3 DAYS Heparin Sodium (Porcine) (Heparin) 5,000 units SC Q12 [facility] PRN Reason: Protocol Sodium Chloride (Sodium Chloride 0.9%) 1,000 mls @ 100 mls/hr IV .Q10H [facility] Stop: 02/02/18 16:24 Last Admin: 02/02/18 02:39 Dose: 100 mls/hr Memantine (Namenda) 10 mg PO BID [facility] Last Admin: 02/01/18 17:28 Dose: 10 mg Metronidazole (Flagyl) 500 mg PO Q8 [facility] PRN Reason: Protocol Last Admin: 02/02/18 00:20 Dose: 500 mg Pantoprazole Sodium (Protonix Ec Tab) 40 mg PO DAILY [facility] Last Admin: 02/01/18 09:57 Dose: 40 mg Sitagliptin Phosphate (Januvia) 25 mg PO DAILY [facility] Last Admin: 02/01/18 09:56 Dose: 25 mg - Labs Labs: 02/01/18 14:22 02/02/18 05:50 - Constitutional Appears: Well, Non-toxic, No Acute Distress - Head Exam Head Exam: ATRAUMATIC, NORMOCEPHALIC - Extremities Exam Additional comments: Bilateral lower extremity exam: Vasc: DP and PT 2/4 bilaterally, Cap refill < 3 sec to all digits, temp gradient warm to cool, No edema bilaterally Ortho: Pain upon palpation to the ecchymotic areas surrounding the ankles b/l Neuro: Could not assess neuro due to patient's altered mental status Derm: Patches of ecchymotic discoloration to skin at the level of the ankle bilaterally. Two small superficial lesions noted to area of right lateral malleolus within the ecchymotic regions, no malodor, minimal sanginous drainage , no probe to bone, no clinical signs of infection. Small ulcerations (.5x.2x.1 ) noted to left lateral foot, minimal serous drainage, no malodor. Friable skin to bilateral feet with hyperpigmentation noted to anterior tibial region, ankles , and feet bilaterally - Neurological Exam Neurological Exam: Alert, Awake Assessment and Plan - Assessment and Plan (Free Text) Assessment: 87 year old female patient seen and evaluated for pain and ecchymotic discoloration to feet and ankles bilaterally Plan: Patient seen and evaluated at bedside Plan discussed with attending Dr. De León Chart, labs and vitals reviewed Lower Extremity US B/L (01/27): no evidence of DVT Bilateral lesions dressed with Telfa and DSD; bilateral lesions likely due to breakdown of friable skin secondary to resolving drug reaction. Patient to continue to wear multipodus boots at all times while in bed Podiatry will continue to follow patient while in-house
[2018-02-02 08:15] VITALS: PULSE 79; O2SAT 99
[2018-02-02] MEDS ORDERED: Potassium Chloride 20 mEq ER Tab PO ONE (08:44)
[2018-02-02] MEDS: Pantoprazole 40 mg EC Tab PO SCH (09:14)
--- NOTE | 2018-02-02 09:58 | CP.PCM.PN ---
Subjective - Date & Time of Evaluation Date of Evaluation: 02/02/18 Time of Evaluation: 09:57 - Subjective Subjective: patient and bed without any significant changes Rectal sign noted to be stable Mentally about the same Objective - Vital Signs/Intake and Output Vital Signs (last 24 hours): Temp Pulse Resp BP Pulse Ox 99.2 F 79 18 168/80 H 99 02/02/18 08:14 02/02/18 08:14 02/02/18 08:14 02/02/18 08:14 02/02/18 08:14 - Medications Medications: Current Medications Acetaminophen (Tylenol 325mg Tab) 650 mg PO Q4 PRN PRN Reason: TEMP OVER 101 Acetaminophen (Tylenol 325mg Tab) 650 mg PO Q4 PRN PRN Reason: Pain, Mild (1-3) Allopurinol (Zyloprim) 100 mg PO DAILY [facility] Last Admin: 02/02/18 09:14 Dose: 100 mg Atorvastatin Calcium (Lipitor) 40 mg PO HS [facility] Last Admin: 02/01/18 21:49 Dose: 40 mg Bisacodyl (Dulcolax) 10 mg [place] DAILY PRN PRN Reason: NO BOWEL MOVEMENT X 3 DAYS Heparin Sodium (Porcine) (Heparin) 5,000 units SC Q12 [facility] PRN Reason: Protocol Last Admin: 02/02/18 09:13 Dose: 5,000 units Sodium Chloride (Sodium Chloride 0.9%) 1,000 mls @ 100 mls/hr IV .Q10H [facility] Stop: 02/02/18 16:24 Last Admin: 02/02/18 02:39 Dose: 100 mls/hr Memantine (Namenda) 10 mg PO BID [facility] Last Admin: 02/02/18 09:14 Dose: 10 mg Metronidazole (Flagyl) 500 mg PO Q8 [facility] PRN Reason: Protocol Last Admin: 02/02/18 09:12 Dose: 500 mg Pantoprazole Sodium (Protonix Ec Tab) 40 mg PO DAILY [facility] Last Admin: 02/02/18 09:14 Dose: 40 mg Sitagliptin Phosphate (Januvia) 25 mg PO DAILY [facility] Last Admin: 02/02/18 09:13 Dose: 25 mg - Labs Labs: 02/01/18 14:22 02/02/18 05:50 - Constitutional Appears: No Acute Distress - ENT Exam ENT Exam: Mucous Membranes Dry - Neck Exam Neck Exam: absent: Lymphadenopathy - Respiratory Exam Respiratory Exam: NORMAL BREATHING PATTERN - Cardiovascular Exam Cardiovascular Exam: absent: Gallop, JVD, Rubs - GI/Abdominal Exam GI & Abdominal Exam: Soft, Normal Bowel Sounds - Extremities Exam Extremities Exam: absent: Calf Tenderness - Back Exam Back Exam: absent: CVA tenderness (L), CVA tenderness (R) - Neurological Exam Neurological Exam: Alert - Psychiatric Exam Psychiatric exam: Normal Affect - Skin Skin Exam: absent: Cyanosis Assessment and Plan (1) Acute renal insufficiency Assessment & Plan: Acute Kidney Injury (N17.9) likely due to pre-renal state, hypotension improving Hypernatremia 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
[2018-02-02 13:05] VITALS: BP 108/71; RESP 20; TEMP 98.6
--- NOTE | 2018-02-02 15:21 | CP.PCM.DIS ---
Provider - Provider Date of Admission: 01/27/18 15:29 Attending physician: Newton Isaacs MD Primary care physician: PMD: Dr. Millard Consults: Dr. Elliott- nephrology Dr. Akhtar- ID Dr. De León- podiatry Time Spent in preparation of Discharge (in minutes): 25 Hospital Course - Lab Results Lab Results: Micro Results 01/27/18 15:30 Blood Blood Culture - Final NO GROWTH AFTER 5 DAYS 01/27/18 15:30 Blood Gram Stain - Final TEST NOT PERFORMED 01/27/18 13:06 Urine Urine Culture - Final No Growth (<1,000 CFU/ML) Most Recent Lab Values WBC 10.6 K/uL (4.8-10.8) 02/01/18 14:22 RBC 4.06 Mil/uL (3.80-5.20) 02/01/18 14:22 Hgb 10.8 g/dL (12.0-16.0) L 02/01/18 14:22 Hct 33.2 % (34.0-47.0) L 02/01/18 14:22 MCV 81.6 fl (81.0-99.0) 02/01/18 14:22 MCH 26.6 pg (27.0-31.0) L 02/01/18 14:22 MCHC 32.6 g/dL (33.0-37.0) L 02/01/18 14:22 RDW 18.3 % (11.5-14.5) H 02/01/18 14:22 Plt Count 239 K/uL (130-400) 02/01/18 14:22 MPV 8.8 fl (7.2-11.7) 02/01/18 14:22 Neut % (Auto) 84.3 % (50.0-75.0) H 02/01/18 14:22 Lymph % (Auto) 7.7 % (20.0-40.0) L 02/01/18 14:22 [place] % (Auto) 6.0 % (0.0-10.0) 02/01/18 14:22 Eos % (Auto) 1.7 % (0.0-4.0) 02/01/18 14:22 Baso % (Auto) 0.3 % (0.0-2.0) 02/01/18 14:22 Neut # (Auto) 8.9 K/uL (1.8-7.0) H 02/01/18 14:22 Lymph # (Auto) 0.8 K/uL (1.0-4.3) L 02/01/18 14:22 [place] # (Auto) 0.6 K/uL (0.0-0.8) 02/01/18 14:22 Eos # (Auto) 0.2 K/uL (0.0-0.7) 02/01/18 14:22 Baso # (Auto) 0.0 K/uL (0.0-0.2) 02/01/18 14:22 Neutrophils % (Manual) 87 % (42-75) H 02/01/18 14:22 Band Neutrophils % 6 % (0-2) H 01/29/18 05:30 Lymphocytes % (Manual) 5 % (20-50) L 02/01/18 14:22 Monocytes % (Manual) 7 % (0-10) 02/01/18 14:22 Eosinophils % (Manual) 1 % (0-7) 02/01/18 14:22 Toxic Granulation Present 01/27/18 13:06 Platelet Estimate Normal (NORMAL) 02/01/18 14:22 Large Platelets Present 01/28/18 06:00 RBC Morphology Normal (NORMAL) 01/29/18 05:30 Hypochromasia (manual) Moderate 02/01/18 14:22 Poikilocytosis (manual Slight 01/28/18 06:00 Anisocytosis (manual) Slight 02/01/18 14:22 Tear Drop Cells Slight 01/28/18 06:00 [place] Cells Slight 01/28/18 06:00 Schistocytes TEST NOT PERFORMED 01/28/18 06:00 pO2 28 mm/Hg (30-55) L 01/27/18 15:21 ABG Carboxyhemoglobin 1.8 % (0.5-1.5) H 01/27/18 15:21 POC ABG HHb (Measured) 47.9 % (0.0-5.0) H 01/27/18 15:21 ABG Methemoglobin 3.9 % (0.0-3.0) H 01/27/18 15:21 VBG pH 7.35 (7.32-7.43) 01/27/18 15:21 VBG pCO2 42 mmHg (40-60) 01/27/18 15:21 VBG HCO3 21.8 mmol/L 01/27/18 15:21 VBG O2 Sat (Calc) 49.2 % (40-65) 01/27/18 15:21 VBG Base Excess -2.4 mmol/L (0.0-2.0) L 01/27/18 15:21 VBG Hgb O2 Saturation 46.4 % (95.0-98.0) L 01/27/18 15:21 Hemoglobin 12.5 g/dL (11.7-17.4) 01/27/18 15:21 Sodium 150 mmol/l (132-148) H 02/02/18 05:50 Potassium 3.5 MMOL/L (3.6-5.0) L 02/02/18 05:50 Chloride 122 mmol/L (98-107) H 02/02/18 05:50 Carbon Dioxide 22 mmol/L (22-30) 02/02/18 05:50 Anion Gap 10 (10-20) 02/02/18 05:50 BUN 18 mg/dl (7-17) H 02/02/18 05:50 Creatinine 1.1 mg/dl (0.7-1.2) 02/02/18 05:50 Est GFR ( Amer) 57 02/02/18 05:50 Est GFR (Non-Af Amer) 47 02/02/18 05:50 POC Glucose (mg/dL) 182 mg/dL (65-110) H 02/02/18 10:58 Random Glucose 110 mg/dL (65-105) H 02/02/18 05:50 Hemoglobin A1c 5.9 % (4.2-6.5) 01/28/18 06:00 Lactic Acid 1.0 MMOL/L (0.7-2.1) 01/28/18 12:20 Uric Acid 7.4 mg/Dl (2.2-7.5) 01/29/18 05:30 Calcium 8.1 mg/dL (8.4-10.2) L 02/02/18 05:50 Phosphorus 5.8 mg/dl (2.5-4.5) H 01/27/18 13:45 Magnesium 2.8 MG/DL (1.6-2.3) H 01/27/18 13:45 Iron 40 ug/dL (37-170) 01/29/18 05:30 TIBC 201 ug/dL (250-450) L 01/29/18 05:30 % Saturation 20 % (20-55) 01/29/18 05:30 Ferritin 942.0 ng/Ml (11.1-264.0) H 01/29/18 05:30 Total Bilirubin 1.2 mg/dl (0.2-1.3) 01/31/18 04:20 AST 34 U/L (14-36) 01/31/18 04:20 ALT 34 U/L (9-52) 01/31/18 04:20 Alkaline Phosphatase 78 U/L (38-126) 01/31/18 04:20 Total Creatine Kinase 148 U/L (30-135) H 01/30/18 04:20 Troponin I 0.0220 ng/mL (0.00-0.120) 01/27/18 13:45 Total Protein 5.7 G/DL (6.3-8.2) L 01/31/18 04:20 Albumin 2.4 g/dL (3.5-5.0) L D 01/31/18 04:20 Globulin 3.3 gm/dL (2.2-3.9) 01/31/18 04:20 Albumin/Globulin Ratio 0.7 (1.0-2.1) L 01/31/18 04:20 25-OH Vitamin D Total 32.4 NG/ML (30.0-100.0) 01/29/18 05:30 Procalcitonin 0.55 NG/ML (0.19-0.49) H 01/28/18 12:20 TSH 3rd Generation 1.11 mIU/ML (0.46-4.68) 01/28/18 06:00 PTH Intact Whole Molec 46 pg/mL (14-64) 01/29/18 05:30 Urine Color Yellow (YELLOW) 01/27/18 13:06 Urine Clarity Cloudy (Clear) 01/27/18 13:06 Urine pH 5.0 (5.0-8.0) 01/27/18 13:06 Ur Specific Curtis 1.015 (1.003-1.030) 01/27/18 13:06 Urine Protein 30 mg/dL (NEGATIVE) 01/27/18 13:06 Urine Glucose (UA) Neg mg/dL (Normal) 01/27/18 13:06 Urine Ketones Negative mg/dL (NEGATIVE) 01/27/18 13:06 Urine Blood Negative (NEGATIVE) 01/27/18 13:06 Urine Nitrate Negative (NEGATIVE) 01/27/18 13:06 Urine Bilirubin Negative (NEGATIVE) 01/27/18 13:06 Urine Urobilinogen 0.2-1.0 mg/dL (0.2-1.0) 01/27/18 13:06 Ur Leukocyte Esterase Neg Tete/uL (Negative) 01/27/18 13:06 Urine RBC (Auto) < 1 /hpf (0-3) 01/27/18 13:06 Urine Microscopic WBC < 1 /hpf (0-5) 01/27/18 13:06 Ur Squamous Epith Cells < 1 /hpf (0-5) 01/27/18 13:06 Amorphous Sediment Rare /ul (<OCC) H 01/27/18 13:06 Urine Bacteria Rare (<OCC) 01/27/18 13:06 Hyaline Casts 0-2 /hpf (0-2) 01/27/18 13:06 Urine Eosinophils Negative (NEGATIVE) 01/28/18 15:29 Ur Random Creatinine 39.6 mg/dL 01/30/18 10:12 U Random Total Protein 1916 mg/g creat (21-161) H 01/28/18 15:29 Ur Random Sodium 62 mmol/L 01/30/18 10:12 Urine Total Volume 2.3 mg/dL 01/28/18 15:29 Microalb/Creat Ratio 43 (<30) H 01/28/18 15:29 Random Vancomycin 10.6 ug/mL 01/29/18 05:30 C. difficile Ag & Toxin Positive antigen (NEGATIVE) 01/31/18 19:00 - Hospital Course Hospital Course: 87 yo female with history of DM2, HTN, HLD, Dementia and CKD brought in from intermediate because of worsening renal function and generalized weakness. Family reports she was given Cipro for a week but they were unclear as to the reasoning for Cipro. She began having diarrhea a week ago and continued to have loose, non-formed stool. Patient also has bilateral lower extremity skin discoloration and ecchymosis on admission. The patient 1. C. diff colitis secondary to Ciprofloxacin administration, now improved with Flagyl. Patient was previously on ciprofloxacin unknown duration of time. Continue Flagyl 500mg PO q 8hrs x 14 days at intermediate 2. Acute Kidney injury- resolved - likely secondary to dehydration from diarrhea - Nephro consult - Patient received gentle IV hydration at the hospital - Encourage po fluid intake at the intermediate 2. Dementia CT scan of head: chronic degenerative changes Physical therapy is following. 3. DM2 BS controlled accucheck ACHS with Lispro coverage Januvia 50mg PO daily HgA1C 01/28/: 5.9 4. HTN BP stable; continue Amlodipine 5. Bilateral edema of Feet/Ankle petechiae like lesions surrounding black necrotic lesions on both feet r/o drug eruptions (patient was put on Depakote for behavioral control in intermediate) podiatry will evaluate twice a week, no change in management at this point. venous and arterial doppler of both legs: negative for DVT and arterial occlusion 8. DVT prophylaxis Received Heparin 5000 units SC q 12hrs while inpatient. Discharge Exam - Head Exam Head Exam: ATRAUMATIC, NORMOCEPHALIC Discharge Plan - Discharge Medications Prescriptions: metroNIDAZOLE [Flagyl] 500 mg PO Q8 #42 tab - Follow Up Plan Condition: FAIR Disposition: HOME/ ROUTINE
== END 2018-02-02 14:40 | DRG 683 ==
LOC: H.ER 11:44 → H.ERHOLD 15:29 → OBSVTOIN 15:29 → H.TEL 20:09
DX: N17.0 Acute kidney failure with tubular necrosis (principal); E87.0 Hyperosmolality and hypernatremia; A04.72 Enterocolitis due to Clostridium difficile, not specified as recurrent; N17.9 Acute kidney failure, unspecified; E86.0 Dehydration; E11.22 Type 2 diabetes mellitus with diabetic chronic kidney disease; E78.00 Pure hypercholesterolemia, unspecified; E78.5 Hyperlipidemia, unspecified; F03.90 Unspecified dementia, unspecified severity, without behavioral disturbance, psychotic disturbance, mood disturbance, and anxiety; I12.9 Hypertensive chronic kidney disease with stage 1 through stage 4 chronic kidney disease, or unspecified chronic kidney disease; D64.9 Anemia, unspecified; D72.825 Bandemia; R41.0 Disorientation, unspecified; N18.9 Chronic kidney disease, unspecified; T36.8X5A Adverse effect of other systemic antibiotics, initial encounter; L98.9 Disorder of the skin and subcutaneous tissue, unspecified